=== PATIENT | female | born 1970 | race Caucasian/White ===

== ENCOUNTER 2020-11-22 04:28 | Inpatient (IN) | payer OTHER ==
[2020-11-22] MEDS ORDERED: SODIUM CHLORIDE 0.9% 500 ML 500 ML IV STA (04:35)
[2020-11-22] MEDS ORDERED: KETOROLAC 15 MG/ML 1 ML VIAL IVP STA (04:50)
[2020-11-22 05:20] LABS: ALT 47 U/L (4-34); AST 154 U/L (14-36); African American GFR (CKD) >90 (>60 ml/min/1.73 sqM); Albumin 3.1 g/dL (3.5-5.0); Alkaline Phosphatase 252 U/L (38-126); Amylase 60 U/L (30-110); Anion Gap 10 mmol/L; Blood Urea Nitrogen 6 mg/dL (7-17); Calcium 8.4 mg/dL (8.4-10.2); Carbon Dioxide 27 mmol/L (22-30); Chloride 100 mmol/L (98-107); Glucose 101 mg/dL (74-99); Lipase 82 U/L (23-300); Non-African American GFR(CKD) >90 (>60 ml/min/1.73 sqM); Potassium 3.2 mmol/L (3.5-5.1); Sodium 137 mmol/L (137-145); Total Bilirubin 6.6 mg/dL (0.2-1.3); Total Protein 8.8 g/dL (6.3-8.2)
[2020-11-22 05:39] LABS: Basophils % (A) 0 %; Eosinophils # (A) 0.1 k/uL (0-0.7); Eosinophils % (A) 1 %; HCT 31.2 % (34.0-46.0); HGB 10.4 gm/dL (11.4-16.0); Lymphocytes # (A) 0.9 k/uL (1.0-4.8); Lymphocytes % (A) 8 %; MCH 33.4 pg (25.0-35.0); MCHC 33.4 g/dL (31.0-37.0); MCV 99.8 fL (80.0-100.0); Macrocytosis Slight; Monocytes # (A) 0.6 k/uL (0-1.0); Monocytes % (A) 6 %; Neutrophils # (A) 9.9 k/uL (1.3-7.7); Neutrophils % (A) 85 %; Platelet Count 101 k/uL (150-450); RBC 3.12 m/uL (3.80-5.40); RDW 14.7 % (11.5-15.5); WBC 11.7 k/uL (3.8-10.6)
--- NOTE | 2020-11-22 05:53 | ED ---
Abdominal Pain HPI - General Source: EMS Mode of arrival: EMS - History of Present Illness MD Complaint: abdominal pain -: hour(s) Location: RUQ Radiation: none Migration to: no migration Severity: severe Quality: sharp Consistency: constant Improves With: nothing Worsens With: nothing Associated Symptoms: nausea, vomiting <Justus Warner - Last Filed: 11/22/20 06:00> <Clem Sewell - Last Filed: 11/22/20 08:36> - General Chief Complaint: Abdominal Pain Stated Complaint: Abd Pain Time Seen by Provider: 11/22/20 04:31 - History of Present Illness Initial Comments: This patient is a 50-year-old woman who presents to be evaluated for right upper quadrant abdominal pain, nausea vomiting. The patient states she is in town for camping. She lives in [place] and she had been treated in the city for similar pain, being hospitalized October 18. The patient was told that it was related to her gallbladder. Patient does have follow-up coming up with records management engineer and another physician in the next 2 days. (Justus Warner) - Related Data Home Medications Medication Instructions Recorded Confirmed Albuterol Sulfate [Proair Hfa] 1 - 2 puff INHALATION RT-QID PRN 11/22/20 11/22/20 Budesonide/Formoterol Fumarate 2 puff INHALATION RT-BID 11/22/20 11/22/20 [Symbicort 80-4.5 Mcg Inhaler] Omeprazole [PriLOSEC] 20 mg PO AC-BRKFST 11/22/20 11/22/20 Allergies Allergy/AdvReac Type Severity Reaction Status Date / Time No Known Allergies Allergy Verified 11/22/20 07:27 Review of Systems ROS Other: All systems not noted in ROS Statement are negative. Constitutional: Denies: fever, chills Respiratory: Denies: cough, dyspnea Cardiovascular: Denies: chest pain, palpitations, edema Gastrointestinal: Reports: abdominal pain, nausea, vomiting. Denies: diarrhea, constipation Genitourinary: Denies: dysuria, hematuria Musculoskeletal: Denies: back pain Skin: Denies: rash Neurological: Denies: headache, weakness, numbness <Justus Warner - Last Filed: 11/22/20 06:00> ROS Other: All systems not noted in ROS Statement are negative. <Clem Sewell - Last Filed: 11/22/20 08:36> ROS Statement: Those systems with pertinent positive or pertinent negative responses have been documented in the HPI. Past Medical History Additional Past Medical History / Comment(s): gallbladder and liver issues History of Any Multi-Drug Resistant Organisms: None Reported Additional Past Surgical History / Comment(s): tubal Past Psychological History: Anxiety Smoking Status: Current every day smoker Past Alcohol Use History: None Reported Past Drug Use History: None Reported <Justus Warner - Last Filed: 11/22/20 06:00> General Exam General appearance: alert, in no apparent distress Head exam: Present: atraumatic, normocephalic Eye exam: Present: PERRL, scleral icterus. Absent: conjunctival injection ENT exam: Present: normal oropharynx Neck exam: Present: normal inspection, full ROM. Absent: tenderness Respiratory exam: Present: normal lung sounds bilaterally. Absent: respiratory distress, wheezes, rales, rhonchi, stridor Cardiovascular Exam: Present: regular rate, normal rhythm, normal heart sounds. Absent: systolic murmur, diastolic murmur, rubs, gallop GI/Abdominal exam: Present: soft, distended, tenderness (Mild right upper quadrant tenderness), organomegaly, other (Exam is consistent with moderate ascites and hepatomegaly). Absent: guarding, rebound, rigid, pulsatile mass Extremities exam: Present: normal inspection, normal capillary refill. Absent: pedal edema, calf tenderness Back exam: Present: normal inspection. Absent: CVA tenderness (R), CVA tenderness (L) Neurological exam: Present: alert Skin exam: Present: warm, dry, intact, other (Jaundice). Absent: rash <Justus Warner - Last Filed: 11/22/20 06:00> Course Vital Signs 11/22/20 11/22/20 04:32 06:58 Temperature 98.8 F Pulse Rate 96 82 Respiratory 19 17 Rate Blood Pressure 146/69 111/52 O2 Sat by Pulse 99 97 Oximetry Medical Decision Making - Lab Data Result diagrams: 11/22/20 04:55 11/22/20 04:55 <Justus Warner - Last Filed: 11/22/20 06:00> - Lab Data Result diagrams: 11/22/20 04:55 11/22/20 04:55 <Clem Sewell - Last Filed: 11/22/20 08:36> - Medical Decision Making Care signed out to me by previous shift physician, Dr. Solis. Briefly, patient is a 50-year-old female presents to the emergency department for abdominal pain. Labs show hepatitis with elevated bilirubin. Patient was seen at outside emergency department recently told that she had gallbladder versus liver dysfunction. Plan at sign out was to follow up with pending ultrasound of the gallbladder. She does already have close outpatient follow-up with gallbladder and liver specialist. Repeat vital signs shows findings within acceptable limits. Patient is afebrile. Gallbladder ultrasound shows underlying hepatocellular disease. His hepatom egaly with surrounding ascites. Gallbladder findings may be a product of underlying liver disease. Radiology read says acute cholecystitis is not entirely excluded. Patient reevaluated at bedside at 8:20 AM. She does report having active symptoms of right upper quadrant abdominal pain, nausea and increased thirst. Repeat abdominal exam shows tenderness to the right upper quadrant. At this point there is suspicion of acute cholecystitis. Patient started on Zosyn. She'll be admitted to [facility] with general surgery and gastroenterology on consult. Case is discussed with Dr. Flowers who is aware of patient and will be on consult. (Clem Sewell) - Lab Data Lab Results 11/22/20 11/22/20 11/22/20 Range/Units 04:55 04:55 04:55 WBC 11.7 H (3.8-10.6) k/uL RBC 3.12 L (3.80-5.40) m/uL Hgb 10.4 L (11.4-16.0) gm/dL Hct 31.2 L (34.0-46.0) % MCV 99.8 (80.0-100.0) fL MCH 33.4 (25.0-35.0) pg MCHC 33.4 (31.0-37.0) g/dL RDW 14.7 (11.5-15.5) % Plt Count 101 L (150-450) k/uL MPV 10.0 Neutrophils % 85 % Lymphocytes % 8 % Monocytes % 6 % Eosinophils % 1 % Basophils % 0 % Neutrophils # 9.9 H (1.3-7.7) k/uL Lymphocytes # 0.9 L (1.0-4.8) k/uL Monocytes # 0.6 (0-1.0) k/uL Eosinophils # 0.1 (0-0.7) k/uL Basophils # 0.0 (0-0.2) k/uL Macrocytosis Slight PT (9.0-12.0) sec INR (<1.2) APTT (22.0-30.0) sec Sodium 137 (137-145) mmol/L Potassium 3.2 L (3.5-5.1) mmol/L Chloride 100 (98-107) mmol/L Carbon Dioxide 27 (22-30) mmol/L Anion Gap 10 mmol/L BUN 6 L (7-17) mg/dL Creatinine 0.53 (0.52-1.04) mg/dL Est GFR (CKD-EPI)AfAm >90 (>60 ml/min/1.73 sqM) Est GFR (CKD-EPI)NonAf >90 (>60 ml/min/1.73 sqM) Glucose 101 H (74-99) mg/dL Lactic Ac Sepsis Rflx Plasma Lactic Acid Alex 2.7 H* (0.7-2.0) mmol/L Calcium 8.4 (8.4-10.2) mg/dL Total Bilirubin 6.6 H (0.2-1.3) mg/dL AST 154 H (14-36) U/L ALT 47 H (4-34) U/L Alkaline Phosphatase 252 H (38-126) U/L Total Protein 8.8 H (6.3-8.2) g/dL Albumin 3.1 L (3.5-5.0) g/dL Amylase 60 (30-110) U/L Lipase 82 (23-300) U/L 11/22/20 11/22/20 Range/Units 05:46 06:44 WBC (3.8-10.6) k/uL RBC (3.80-5.40) m/uL Hgb (11.4-16.0) gm/dL Hct (34.0-46.0) % MCV (80.0-100.0) fL MCH (25.0-35.0) pg MCHC (31.0-37.0) g/dL RDW (11.5-15.5) % Plt Count (150-450) k/uL MPV Neutrophils % % Lymphocytes % % Monocytes % % Eosinophils % % Basophils % % Neutrophils # (1.3-7.7) k/uL Lymphocytes # (1.0-4.8) k/uL Monocytes # (0-1.0) k/uL Eosinophils # (0-0.7) k/uL Basophils # (0-0.2) k/uL Macrocytosis PT 20.8 H (9.0-12.0) sec INR 2.1 H (<1.2) APTT 39.7 H (22.0-30.0) sec Sodium (137-145) mmol/L Potassium (3.5-5.1) mmol/L Chloride (98-107) mmol/L Carbon Dioxide (22-30) mmol/L Anion Gap mmol/L BUN (7-17) mg/dL Creatinine (0.52-1.04) mg/dL Est GFR (CKD-EPI)AfAm (>60 ml/min/1.73 sqM) Est GFR (CKD-EPI)NonAf (>60 ml/min/1.73 sqM) Glucose (74-99) mg/dL Lactic Ac Sepsis Rflx Y Plasma Lactic Acid Alex (0.7-2.0) mmol/L Calcium (8.4-10.2) mg/dL Total Bilirubin (0.2-1.3) mg/dL AST (14-36) U/L ALT (4-34) U/L Alkaline Phosphatase (38-126) U/L Total Protein (6.3-8.2) g/dL Albumin (3.5-5.0) g/dL Amylase (30-110) U/L Lipase (23-300) U/L Disposition <Justus Warner - Last Filed: 11/22/20 06:00> <Clem Sewell - Last Filed: 11/22/20 08:36> Clinical Impression: Abdominal pain, Liver failure Disposition: ADMITTED IP TO THIS HOSP Condition: Fair Referrals: Nonstaff,Physician [Primary Care Provider] - 1-2 days
[2020-11-22 07:15] LABS: INR 2.1 (<1.2); Partial Thromboplastin Time 39.7 sec (22.0-30.0); Prothrombin Time 20.8 sec (9.0-12.0)
--- NOTE | 2020-11-22 07:59 | US ---
EXAMINATION TYPE: US abdomen limited DATE OF EXAM: 11/22/2020 COMPARISON: NONE CLINICAL HISTORY: attention RUQ. RUQ pain nausea and vomiting EXAM MEASUREMENTS: Liver Length: 21.5 cm Gallbladder Wall: .3 cm CBD: 1.0 cm Right Kidney: 11.3 x 4.2 x 5.5 cm Pancreas: Homogeneous, duct visualized 2 mm Liver: Hepatomegaly ascites visualized Gallbladder: Hydropic 14.4 cm pericholecystic fluid seen with echogenic foci within gallbladder Evidence for sonographic Blanchard's sign: No CBD: Dilated Right Kidney: No hydronephrosis or masses seen Visualized pancreas within normal limits. Visualized liver heterogeneous and enlarged with small amou nt of surrounding ascites. No significant intrahepatic biliary dilatation. Gallbladder has distended margins with possible small stones and/or sludge. Mild extra hepatic biliary dilatation. IMPRESSION: Underlying hepatocellular disease. Hepatomegaly with surrounding ascites. Gallbladder fin dings may be on product of underlying liver disease. Acute cholecystitis is not entirely excluded. Co nsider HIDA scan follow-up.
[2020-11-22] MEDS ORDERED: PIPERACILLIN-TAZOBACTAM 3.375 GM in SODIUM CHLORIDE 0.9% 100 ML IVPB STA (08:18)
[2020-11-22] MEDS ORDERED: NALOXONE 0.4 MG/ML 1 ML VIAL IV PRN (08:28)
[2020-11-22] MEDS: ONDANSETRON 4 MG/2 ML VIAL IVP PRN ×2 (08:36→18:03)
[2020-11-22] MEDS: SODIUM CHLORIDE 0.9% 1,000 ML IV SCH ×2 (08:37→21:19)
[2020-11-22] MEDS: PANTOPRAZOLE 40 MG/10 ML VIAL IV SCH (08:40)
--- NOTE | 2020-11-22 09:27 | CT ---
EXAMINATION TYPE: CT abdomen pelvis w con DATE OF EXAM: 11/22/2020 COMPARISON: Ultrasound same day HISTORY: 50-year-old female with bloating and jaundice, abdominal pain. TECHNIQUE: Contiguous axial scanning of the abdomen and pelvis following administration of 100 ml Iso long 300 IV contrast. Delayed images through the kidneys and coronal/sagittal reconstructions perform ed. CT DLP: 662.1 mGycm Automated exposure control for dose reduction was used. FINDINGS: Heart normal size without pericardial effusion. Some strandy atelectasis in the lower lungs. Dependen t atelectasis as well. There is a small hiatal hernia with suggestion of lower esophageal varices. There is cirrhotic morphology to the liver with nodular contour. Extensive heterogeneous enhancement on the initial phase. On delayed kidney images, a couple small hypodensities within the right liver l obe measuring 7 mm and 6 mm on series 301 axial image 17 and 24. Follow-up is recommended to exclude early HCC. Portal venous system is patent. Gallbladder is markedly hydropic measuring 6 cm wide. Bile duct is dilated at 1.1 cm. There is possib le faint density at the distal bile duct, coronal image 51. Moderate abdominal and pelvic ascites. Adrenal glands, kidneys, spleen, and pancreas show no gross abnormality. Dmitry hepatic lymph node measuring 8 mm probably reactive. Moderate to severe wall thickening of the right side of the colon. No dilated small bowel or free air. Bladder partially distended. Uterus anteverted. Both ovaries are visualized. Ascites fluid continues into the pelvis. No pelvic lymphadenopathy seen. Bones: No osseous destructive process. IMPRESSION: 1. CIRRHOTIC MORPHOLOGY OF THE LIVER. EXTENSIVE HETEROGENEOUS ENHANCEMENT OF THE LIVER LIKELY DUE TO THE CIRRHOSIS. ON THE DELAYED SCAN, THERE ARE A COUPLE HYPODENSE LESIONS IN THE RIGHT LIVER LOBE ANGELA URING UP TO [address] MM[address] FOLLOW-UP CT OR MRI IN 3-6 MONTHS TO EXCLUDE SMALL EARLY FOCI OF HCC. 2. THE PRESENCE OF MODERATE ASCITES AND LOWER ESOPHAGEAL VARICES SUGGESTS PORTAL VENOUS HYPERTENSION. 3. BILE DUCT DILATED AT 1.1 CM. POSSIBLE FAINT DENSITY AT THE DISTAL BILE DUCT. CORRELATE WITH ALKALI NE PHOSPHATASE AND BILIRUBIN LEVELS TO EXCLUDE CHOLEDOCHOLITHIASIS. 4. HYDROPIC GALLBLADDER CHANGE COULD BE SECONDARY TO FASTING STATE OR BILIARY OBSTRUCTION. THE DEGREE OF DISTENTION IS OUT OF PROPORTION TO THE GALLBLADDER WALL THICKENING ARGUING AGAINST ACUTE CHOLECYS TITIS AT THIS TIME. FURTHER CLINICAL CORRELATION RECOMMENDED. 5. MODERATE TO SEVERE WALL THICKENING OF THE RIGHT SIDE OF THE COLON COULD REPRESENT A SIGNIFICANT NO NSPECIFIC COLITIS IF THERE IS PAIN. OTHERWISE, CONSIDER BOWEL WALL EDEMA FROM HYPOALBUMINEMIA.
[2020-11-22] MEDS ORDERED: ACETAMINOPHEN TAB 325 MG TAB PO PRN (09:28)
[2020-11-22] MEDS: MORPHINE SULFATE 4 MG/ML SYRINGE IV PRN ×2 (09:37→18:03)
--- NOTE | 2020-11-22 10:52 | P.HPIM ---
History of Present Illness H&P Date: 11/22/20 Chief Complaint: Abdominal pain this is a 50-year-old female with past medical history noted below significant for alcoholic liver cirrhosis that presented to the emergency room with abdominal pain. Patient said that her symptoms started couple of days ago and is being getting progressively worse. Patient noted that her abdomen is more distended and was having a lot of nausea and vomiting. Patient denies any blood in her vomitus. She said it's mostly spitting and retching. Patient is also complaining of loose stool and having to 3 bowel movements per day. Patient said that she used to drink alcohol heavily but quit drinking on October 18. She is from the [facility] and usually follow[place]up with [facility] [place]. Patient was scheduled to see a quality assurance specialist tomorrow. She was told that she has liver problems but is not sure what. She denies having any history of GI bleed. Patient was evaluated by me in the ER. She clearly has a large ascites in her abdomen was distended with moderate to severe tenderness all over. Review of Systems Review of system: 14 points review of systems were obtained and were negative except to what were mentioned in the HPI. Past Medical History Additional Past Medical History / Comment(s): gallbladder and liver issues History of Any Multi-Drug Resistant Organisms: None Reported Additional Past Surgical History / Comment(s): tubal Past Psychological History: Anxiety Smoking Status: Current every day smoker Past Alcohol Use History: None Reported Past Drug Use History: None Reported Medications and Allergies Home Medications Medication Instructions Recorded Confirmed Type Albuterol Sulfate [Proair Hfa] 1 - 2 puff INHALATION RT-QID PRN 11/22/20 11/22/20 History Budesonide/Formoterol Fumarate 2 puff INHALATION RT-BID 11/22/20 11/22/20 History [Symbicort 80-4.5 Mcg Inhaler] Omeprazole [PriLOSEC] 20 mg PO AC-BRKFST 11/22/20 11/22/20 History Allergies Allergy/AdvReac Type Severity Reaction Status Date / Time No Known Allergies Allergy Verified 11/22/20 07:27 Physical Exam Vitals: Vital Signs Temp Pulse Resp BP Pulse Ox 11/22/20 10:13 100.5 F H 11/22/20 09:22 101.5 F H 100 18 144/68 98 11/22/20 06:58 82 17 111/52 97 11/22/20 04:32 98.8 F 96 19 146/69 99 Intake and Output 11/21/20 11/22/20 11/22/20 22:59 06:59 14:59 Other: Weight 52.163 kg General: The patient is awake and alert, in no distress Eye: there is normal conjunctiva bilaterally. Neck: The neck is supple, there is no JVD. Cardiovascular: Normal S1-S2, no S3-S4, no murmurs. Respiratory: Lungs clear to auscultation bilaterally Gastrointestinal: Abdomen is significantly distended with evidence of large ascites. There is moderate to severe tenderness all over the abdomen. Musculoskeletal: There is +1 pedal edema. Neurological:. Speech is normal. Skin: Skin is warm and dry Results CBC & Chem 7: 11/22/20 04:55 11/22/20 04:55 Labs: Abnormal Lab Results - Last 24 Hours (Table) 11/22/20 11/22/20 11/22/20 Range/Units 04:55 04:55 04:55 WBC 11.7 H (3.8-10.6) k/uL RBC 3.12 L (3.80-5.40) m/uL Hgb 10.4 L (11.4-16.0) gm/dL Hct 31.2 L (34.0-46.0) % Plt Count 101 L (150-450) k/uL Neutrophils # 9.9 H (1.3-7.7) k/uL Lymphocytes # 0.9 L (1.0-4.8) k/uL PT (9.0-12.0) sec INR (<1.2) APTT (22.0-30.0) sec Potassium 3.2 L (3.5-5.1) mmol/L BUN 6 L (7-17) mg/dL Glucose 101 H (74-99) mg/dL Plasma Lactic Acid Alex 2.7 H* (0.7-2.0) mmol/L Total Bilirubin 6.6 H (0.2-1.3) mg/dL AST 154 H (14-36) U/L ALT 47 H (4-34) U/L Alkaline Phosphatase 252 H (38-126) U/L Ammonia (<30) umol/L Total Protein 8.8 H (6.3-8.2) g/dL Albumin 3.1 L (3.5-5.0) g/dL 11/22/20 11/22/20 11/22/20 Range/Units 06:44 06:44 09:33 WBC (3.8-10.6) k/uL RBC (3.80-5.40) m/uL Hgb (11.4-16.0) gm/dL Hct (34.0-46.0) % Plt Count (150-450) k/uL Neutrophils # (1.3-7.7) k/uL Lymphocytes # (1.0-4.8) k/uL PT 20.8 H (9.0-12.0) sec INR 2.1 H (<1.2) APTT 39.7 H (22.0-30.0) sec Potassium (3.5-5.1) mmol/L BUN (7-17) mg/dL Glucose (74-99) mg/dL Plasma Lactic Acid Alex 3.4 H* (0.7-2.0) mmol/L Total Bilirubin (0.2-1.3) mg/dL AST (14-36) U/L ALT (4-34) U/L Alkaline Phosphatase (38-126) U/L Ammonia 44 H (<30) umol/L Total Protein (6.3-8.2) g/dL Albumin (3.5-5.0) g/dL Assessment and Plan Assessment: This is a 50-year-old female with very complex past medical history noted below who presented to the emergency room with worsening abdominal pain and distention. Patient was evaluated in the ER and was readmitted to the hospital for further management of her medical problems noted below. 1. Large ascites with suspected spontaneous bacterial peritonitis, patient was given a dose of IV Zosyn in the ER. I would continue with ceftriaxone 2 g daily IV. Consult IR for paracentesis. 2. Severe sepsis without septic shock, received a liter IV fluid bolus in the ER. Continue her normal saline at 80 ml/hr. blood culture sent and pending. 3. Alcoholic liver cirrhosis with evidence of lower esophageal varices noted on computed tomography scan. Patient denies any history of variceal bleeds. GI consulted for further evaluation. 4. Coagulopathy, INR 2.1 without evidence of bleeding. I ordered 5 mg oral vitamin K. Repeat INR in the morning. 5. Thrombocytopenia, secondary to underlying liver disease 6. Hypokalemia, replacement ordered Today, I reviewed her medication list and lab work results. I would start patient on diuretics with IV Lasix 40 mg twice daily and spironolactone 50 mg daily. Plan to transition Lasix to oral tomorrow. There is evidence of mo derate to severe wall thickening of the colon noted on computed tomography scan suggestive for bowel edema. We will continue supportive care otherwise. Awaiting gastroenterology evaluation.
--- NOTE | 2020-11-22 10:53 | P.PN ---
Progress Note - Text Progress Note Date: 11/22/20 Advanced Care Planning Active Diagnosis: Alcoholic liver cirrhosis with spontaneous bacterial peritonitis and severe sepsis Persons present: Patient and other family members Summary: Discussed the patient's goals of care in detail including the meaning of cardiac resuscitation, chest compression/electric shock, and mechanical ventilation. Patient would like to have any resuscitation efforts possible to keep her alive Patient is full code Time spent: Total time spent face to face in education and discussion directly related to advanced care plannin minutes
[2020-11-22] MEDS ORDERED: POTASSIUM CHLORIDE 20 MEQ in WATER FOR INJECTION 1 100ML.BAG IVPB ONE (11:00)
[2020-11-22] MEDS ORDERED: SPIRONOLACTONE 25 MG TAB PO SCH (11:00)
[2020-11-22] MEDS ORDERED: PHYTONADIONE ORAL 5 MG/5 ML ORAL.SYRG PO ONE (11:15)
[2020-11-22 11:24] LABS: Appearance,Urine Clear (Clear); Bilirubin,Urine 1+ (Negative); Blood,Urine Negative (Negative); Color,Urine Dark Yellow; Glucose,Urine (UA) Negative (Negative); Ketones,Urine Negative (Negative); Leukocyte Esterase,Urine Negative (Negative); Nitrite,Urine Negative (Negative); Protein,Urine Trace (Negative)
[2020-11-22] MEDS: FUROSEMIDE 10 MG/ML 4 ML VIAL IV SCH ×2 (12:01→21:19)
--- NOTE | 2020-11-22 15:59 | P.CONS ---
History of Present Illness - Reason for Consult Consult date: 11/22/20 Abdominal pain, liver disease Requesting physician: Clem Sewell - Chief Complaint Abdominal pain - History of Present Illness This is a pleasant 50-year-old white female who presented to the emergency department with complaints of severe epigastric and right upper quadrant pain that started approximately 3 or 4:00 in the morning. The patient was camping in this area, he resides in [facility]. She states she was recently diagnosed with liver disease and gallbladder problems approximately one month ago. She is scheduled to see a central processing technician tomorrow Dr. Bryant. She noted she was starting to get distended in the abdomen 3-4 days ago, pain was getting worse, associated nausea, no vomiting. She states she has a significant history of alcohol abuse has been a heavy drinker daily for the past 4-5 years. She states she has not had any alcohol for approximately one month. Her admission labs include WBC 11.7, hemoglobin 10.4, hematocrit 31, platelets 401,000, INR 2.1, ammonia 44, total bilirubin 6.6, alkaline phosphatase 252, AST 154, ALT 47, amyl ase 60, lipase 82. Labs are consistent with alcoholic hepatitis. She has an ultrasound paracentesis ordered. However patient states she has not had ascites in the past, no previous paracentesis. She denies being on any diuretics from her previous admission. She had a ultrasound of the abdomen which showed underlying hepatocellular disease. Hepatomegaly with surrounding ascites. Gallbladder findings may be a product of underlying liver disease. Acute cholecystitis is not entirely excluded. Consider HIDA scan follow-up. CT of abdomen shows cirrhotic morphology of the liver with extensive heterogeneous enhancement of the liver likely due to cirrhosis. There are couple hypodense lesions in the right liver lobe measuring up to 7 mm, follow-up CT or MRI in 3-6 months to exclude small early foci of HCC. Presence of moderate ascites and lower esophageal varices suggest portal venous hypertension. Bile duct dilated at 1.1 cm possible faint density at the distal bile duct. Correlate with alkaline phosphatase and bilirubin levels to exclude choledochal lithiasis. Hydropic gallbladder change could be secondary to fasting state or biliary obstruction. Degree of distention is out of proportion to the gallbladder wall thickening arguing against acute cholecystitis at this time. Further clinical correlation recommended. Moderate to severe wall thickening of the right side of the colon could represent a significant nonspecific colitis if there is pain. Otherwise consider bowel wall edema from hypoalbuminemia. Review of Systems REVIEW OF SYSTEMS: CARDIOPULMONARY: No chest pain or shortness of breath. Gastrointestinal: Upper quadrant pain, epigastric pain. Abdominal distention. No nausea or vomiting. No hematemesis, coffee-ground emesis. No rectal bleeding, or melena. GENITOURINARY: No dysuria or hematuria. MUSCULOSKELETAL: Reports normal range of motion., Joint pain. SKIN: No rashes. Positive jaundice. ENDOCRINE: No chills, fevers. No excessive weight gain or loss. No polydipsia or polyuria. PSYCHIATRIC: Unremarkable. NEUROLOGY: No change in mental status. Denies dizziness, headache. ENT: Vision unremarkable. CONSTITUTIONAL: No recent weight loss. No fever, chills, night sweats. Past Medical History Past Medical History: GERD/Reflux Additional Past Medical History / Comment(s): Pt admitted to [facility] in [place] on 10/18/20 with gallbladder disease and told she may have liver cirrhosis. Pt states she was a heavy drinker but has not drank since 10/18/20. History of Any Multi-Drug Resistant Organisms: None Reported Past Surgical History: Tubal Ligation Additional Past Surgical History / Comment(s): tubal Past Anesthesia/Blood Transfusion Reactions: No Reported Reaction Smoking Status: Current every day smoker - Past Family History Father History Unknown: Yes Mother Family Medical History: Cancer Additional Family Medical History / Comment(s): Mother has survived 3 different types of cancer. Medications and Allergies Home Medications Medication Instructions Recorded Confirmed Type Albuterol Sulfate [Proair Hfa] 1 - 2 puff INHALATION RT-QID PRN 11/22/20 11/22/20 History Budesonide/Formoterol Fumarate 2 puff INHALATION RT-BID 11/22/20 11/22/20 History [Symbicort 80-4.5 Mcg Inhaler] Omeprazole [PriLOSEC] 20 mg PO AC-BRKFST 11/22/20 11/22/20 History Allergies Allergy/AdvReac Type Severity Reaction Status Date / Time No Known Allergies Allergy Verified 11/22/20 07:27 Physical Exam Vitals: Vital Signs Temp Pulse Resp BP Pulse Ox 11/22/20 13:48 100 16 101/43 98 11/22/20 12:10 100 18 101/48 100 11/22/20 10:13 100.5 F H 11/22/20 09:22 101.5 F H 100 18 144/68 98 11/22/20 06:58 82 17 111/52 97 11/22/20 04:32 98.8 F 96 19 146/69 99 Intake and Output 11/22/20 11/22/20 11/22/20 06:59 14:59 22:59 Other: Weight 52.163 kg 52.163 kg General appearance: The patient is alert, oriented, appears in no acute distress. HET: Head is normocephalic and atraumatic. Conjunctiva pink. Sclera anicteric. Oropharynx is clear without lesions. Neck: Supple without lymphadenopathy. Trachea midline. Heart: S1 S2. Regular rate and rhythm. Lungs: No crackles or wheezes are heard. Abdomen: Firm, diffuse tenderness, distended. Extremities: Bilateral lower extremity edema. In: No rashes. Jaundice. Neurological: No focal deficits. Alert and oriented 3. Results CBC & Chem 7: 11/22/20 04:55 11/22/20 04:55 Labs: Abnormal Lab Results - Last 24 Hours (Table) 11/22/20 11/22/20 11/22/20 Range/Units 04:55 04:55 04:55 WBC 11.7 H (3.8-10.6) k/uL RBC 3.12 L (3.80-5.40) m/uL Hgb 10.4 L (11.4-16.0) gm/dL Hct 31.2 L (34.0-46.0) % Plt Count 101 L (150-450) k/uL Neutrophils # 9.9 H (1.3-7.7) k/uL Lymphocytes # 0.9 L (1.0-4.8) k/uL PT (9.0-12.0) sec INR (<1.2) APTT (22.0-30.0) sec Potassium 3.2 L (3.5-5.1) mmol/L BUN 6 L (7-17) mg/dL Glucose 101 H (74-99) mg/dL Plasma Lactic Acid Alex 2.7 H* (0.7-2.0) mmol/L Total Bilirubin 6.6 H (0.2-1.3) mg/dL AST 154 H (14-36) U/L ALT 47 H (4-34) U/L Alkaline Phosphatase 252 H (38-126) U/L Ammonia (<30) umol/L Total Protein 8.8 H (6.3-8.2) g/dL Albumin 3.1 L (3.5-5.0) g/dL Ur Specific Martin (1.001-1.035) Urine Protein (Negative) Urine Bilirubin (Negative) 11/22/20 11/22/20 11/22/20 Range/Units 06:44 06:44 09:33 WBC (3.8-10.6) k/uL RBC (3.80-5.40) m/uL Hgb (11.4-16.0) gm/dL Hct (34.0-46.0) % Plt Count (150-450) k/uL Neutrophils # (1.3-7.7) k/uL Lymphocytes # (1.0-4.8) k/uL PT 20.8 H (9.0-12.0) sec INR 2.1 H (<1.2) APTT 39.7 H (22.0-30.0) sec Potassium (3.5-5.1) mmol/L BUN (7-17) mg/dL Glucose (74-99) mg/dL Plasma Lactic Acid Alex 3.4 H* (0.7-2.0) mmol/L Total Bilirubin (0.2-1.3) mg/dL AST (14-36) U/L ALT (4-34) U/L Alkaline Phosphatase (38-126) U/L Ammonia 44 H (<30) umol/L Total Protein (6.3-8.2) g/dL Albumin (3.5-5.0) g/dL Ur Specific Martin (1.001-1.035) Urine Protein (Negative) Urine Bilirubin (Negative) 11/22/20 11/22/20 Range/Units 10:55 12:42 WBC (3.8-10.6) k/uL RBC (3.80-5.40) m/uL Hgb (11.4-16.0) gm/dL Hct (34.0-46.0) % Plt Count (150-450) k/uL Neutrophils # (1.3-7.7) k/uL Lymphocytes # (1.0-4.8) k/uL PT (9.0-12.0) sec INR (<1.2) APTT (22.0-30.0) sec Potassium (3.5-5.1) mmol/L BUN (7-17) mg/dL Glucose (74-99) mg/dL Plasma Lactic Acid Alex 2.6 H* (0.7-2.0) mmol/L Total Bilirubin (0.2-1.3) mg/dL AST (14-36) U/L ALT (4-34) U/L Alkaline Phosphatase (38-126) U/L Ammonia (<30) umol/L Total Protein (6.3-8.2) g/dL Albumin (3.5-5.0) g/dL Ur Specific Martin 1.050 H (1.001-1.035) Urine Protein Trace H (Negative) Urine Bilirubin 1+ H (Negative) Comments: ultrasound of the abdomen which showed underlying hepatocellular disease. Hepatomegaly with surrounding ascites. Gallbladder findings may be a product of underlying liver disease. Acute cholecystitis is not entirely excluded. Consider HIDA scan follow-up. CT of abdomen shows cirrhotic morphology of the liver with extensive heterogeneous enhancement of the liver likely due to cirrhosis. There are couple hypodense lesions in the right liver lobe measuring up to 7 mm, follow-up CT or MRI in 3-6 months to exclude small early foci of HCC. Presence of moderate ascites and lower esophageal varices suggest portal venous hypertension. Bile duct dilated at 1.1 cm possible faint density at the distal bile duct. Correlate with alkaline phosphatase and bilirubin levels to exclude choledochal lithiasis. Hydropic gallbladder change could be secondary to fasting state or biliary obstruction. Degree of distention is out of proportion to the gallbladder wall thickening arguing against acute cholecystitis at this time. Further clinical correlation recommended. Moderate to severe wall th ickening of the right side of the colon could represent a significant nonspecific colitis if there is pain. Otherwise consider bowel wall edema from hypoalbuminemia. Assessment and Plan (1) Cirrhosis of liver with ascites Narrative/Plan: Since a 50-year-old female who presented to the emergency department with severe onset of epigastric and right upper quadrant pain that started around 3 or 4:00 in the morning. She states she has been noticing abdominal distention over the last 3-4 days. She denies any previous history of ascites or previous paracentesis, however was admitted to the hospital approximately one month ago and diagnosed with alcoholic liver disease. She states she has a follow-up appointment with gastroenterology in [facility] Dr. Bryant. She admits to heavy alcohol consumption over the last 5-6 years, which she states she has been drinking daily. She states she stopped drinking approximately one month ago after her hospitalization. Liver enzymes are consistent with alcoholic hepatitis. She had a ultrasound of the abdomen which showed underlying hepatocellular disease. Hepatomegaly with surrounding ascites. Gallbladder findings may be a product of underlying liver disease. Acute cholecystitis is not entirely excluded. Consider HIDA scan follow-up. CT of abdomen shows cirrhotic morphology of the liver with extensive heterogeneous enhancement of the liver likely due to cirrhosis. There are couple hypodense lesions in the right liver lobe measuring up to 7 mm, follow-up CT or MRI in 3-6 months to exclude small early foci of HCC. Presence of moderate ascites and lower esophageal varices suggest portal venous hypertension. Bile duct dilated at 1.1 cm possible faint density at the distal bile duct. Correlate with alkaline phosphatase and bilirubin levels to exclude choledochal lithiasis. Hydropic gallbladder change could be secondary to fasting state or biliary obstruction. Degree of distention is out of proportion to the gallbladder wall thickening arguing against acute cholecystitis at this time. Further clinical correlation recommended. Moderate to severe wall thickening of the right side of the colon could represent a significant nonspecific colitis if there is pain. Otherwise consider bowel wall edema from hypoalbuminemia. Agree paracentesis with cell count and fluid culture and antibiotics for consideration of possible spontaneous bacterial peritonitis. Current Visit: Yes Status: Acute Code(s): K74.60 - UNSPECIFIED CIRRHOSIS OF LIVER; R18.8 - OTHER ASCITES SNOMED Code(s): 67207254 (2) Abdominal pain Current Visit: Yes Status: Acute Code(s): R10.9 - UNSPECIFIED ABDOMINAL PAIN SNOMED Code(s): 24661331 Plan: 1. Agree with paracentesis with fluid studies including cell count, fluid culture, protein and albumin 2. Continue Lasix 40 mg twice a day 3. Continue Aldactone 50 mg daily 4. Repeat CBC, INR, CMP daily 5. Repeat ammonia in the morning 6. Alcohol cessation 7. Continue broad-spectrum antibiotics Thank you for this consultation, we will continue to follow Dr. Gabriel Hendricks I agree with the dictator's note, documented as a scribe by Johnna Patel.
[2020-11-22] MEDS: LACTULOSE 20 GM/30 ML CUP PO SCH ×2 (16:22→21:18)
--- NOTE | 2020-11-22 16:39 | US ---
EXAMINATION TYPE: US paracentesis abd w/image DATE OF EXAM: 11/22/2020 COMPARISON: CT 11/22/2020 HISTORY: Ascites. PROCEDURE: Maximal barrier technique was utilized. The skin overlying a suitable pocket of fluid was localized with ultrasound and the overlying skin was prepped and draped in the right lower quadrant. Ultrasoun d was utilized with sterile technique. Lidocaine was used for local anesthesia. 22-gauge needle was a dvanced under direct ultrasound guidance into a suitable pocket of fluid and approximately 5 cc yello w fluid removed. Catheter was withdrawn and hemostasis achieved. There is no immediate complication ; the patient is discharged in stable condition. IMPRESSION: STATUS POST ULTRASOUND GUIDED PARACENTESIS FOR DIAGNOSTIC PURPOSES OF ASCITES. THIS PRO CEDURE WAS PERFORMED BY THE UNDERSIGNED.
[2020-11-22 18:04] LABS: Appearance,BF Cloudy; Nucleated Cells, Body Fluid 7700 /uL; RBC, Body Fluid 150 /uL
--- NOTE | 2020-11-22 18:21 | P.GSCN ---
History of Present Illness Consult date: 11/22/20 History of present illness: CHIEF COMPLAINT: Abdominal pain HISTORY OF PRESENT ILLNESS: The patient is a 50 year old female with history of heavy alcohol use. She presented with acute onset abdominal pain at the right upper quadrant for over 2 days. She complained of bloating and severe belly pain. She has nausea. She reports abdominal pain has improved. No reports of blood in stools. General surgery is consulted for right upper quadrant abdominal pain. PAST MEDICAL HISTORY: See list and reviewed PAST SURGICAL HISTORY: See list and reviewed MEDICATIONS: See list and reviewed ALLERGIES: See list and reviewed SOCIAL HISTORY: See list and reviewed FAMILY HISTORY: See list and reviewed REVIEW OF ORGAN SYSTEMS: CONSTITUTIONAL: No fevers or chills. EYES: Denies any trouble with vision. No glasses. HEENT: No difficulties with hearing. No nosebleeds. No difficulty swallowing. RESPIRATORY: Has tobacco abuse disorder. Has chronic obstructive pulmonary disease. CARDIOVASCULAR: Denies any chest pain, palpitations, or recent heart attacks. GASTROINTESTINAL: Has gastroesophageal reflux disease GENITOURINARY: Denies any blood in urine or increased urinary frequency. NEUROLOGICAL: Denies any numbness or tingling along the distal extremities. No seizure disorders or headaches. MUSCULOSKELETAL: Has back pain, stiffness or joint arthritis. SKIN: No current skin cancer. No rash. PSYCHIATRIC: Has anxiety. ENDOCRINE: Denies current thyroid disorders. Denies any blood sugar glucose intolerance. HEME/LYMPHATIC: Denies any lumps and bumps around the neck. No recent deep venous thrombosis. ALLERGY/IMMUNOLOGY: No immunoglobulin therapy. No immune deficiencies. BREAST: Denies current breast lumps, pain or nipple discharge. PHYSICAL EXAM: VITALS: Reviewed CONSTITUTIONAL: Well developed and in no acute distress. EYES: Conjuctivae with sclera icterus. Extraocular movements grossly intact. HEAD, EARS, NOSE, THROAT: Moist buccal mucosa. Head is atraumatic, normocephalic. Hears conversational speech. No nasal drainage. NECK: Supple. No JV distention. No thyroidomegaly. RESPIRATORY: Non-labored respirations and equal bilateral excursions. No gross wheezes. CARDIOVASCULAR: Palpable 2+ radial pulses. ABDOMEN: Has abdominal distention with ascites. Has diffuse tenderness. LYMPH: No neck lymphadenopathy. MUSCULOSKELETAL: Nail and fingers with good capillary refill. SKIN: Warm and well perfused with good skin turgor. NEUROLOGIC: Cranial nerves II through XII grossly intact. No focal or lateralizing signs. PSYCH: Alert and oriented to person, place and time. Displays appropriate insight. CLINCAL LABS: Reviewed. WBC elevated over 11,000. LFTs elevated with total bilirubin over 6.6. Lactic acid elevated. INR 2.0 IMAGING: US reviewed consistent with cirrhosis and new abdominal ascites. This is my independent interpretation. CT of the abdomen and pelvis independently reviewed by me demonstrated spl enomegaly, ascites, hydrops of the gallbladder. This is my independent interpretation. RADIOLOGY: Report reviewed CT of the abdomen pelvis demonstrates esophageal varices with hiatal hernia. Dilated common bile duct over 1 cm. Hydrops of the gallbladder as well. Thickening of the colon identified. Ultrasound report confirms hydrops of the gallbladder with cirrhosis and dilated common bile duct. Sludge and gallstones identified. ASSESSMENT: 1. Alcohol-induced hepatitis with cirrhosis 2. Abdominal ascites 3. Jaundice with gallstones 4. Liver failure PLAN: 1. Patient seen and evaluated with history of heavy alcohol use. 2. Patient is jaundiced with labs consistent with acute liver failure. 3. RUQ pain likely for acute liver failure and less likely acute cholecystitis. 4. Cholecystectomy contra-indicated in acute liver failure. 5. No acute surgical intervention advised. Thank you for this kind consultation. Past Medical History Past Medical History: GERD/Reflux Additional Past Medical History / Comment(s): Pt admitted to [facility] in [place] on 10/18/20 with gallbladder disease and told she may have liver cirrhosis. Pt states she was a heavy drinker but has not drank since 10/18/20. History of Any Multi-Drug Resistant Organisms: None Reported Past Surgical History: Tubal Ligation Additional Past Surgical History / Comment(s): tubal Past Anesthesia/Blood Transfusion Reactions: No Reported Reaction Smoking Status: Current every day smoker - Past Family History Father History Unknown: Yes Mother Family Medical History: Cancer Additional Family Medical History / Comment(s): Mother has survived 3 different types of cancer. Medications and Allergies Home Medications Medication Instructions Recorded Confirmed Type Albuterol Sulfate [Proair Hfa] 1 - 2 puff INHALATION RT-QID PRN 11/22/20 11/22/20 History Budesonide/Formoterol Fumarate 2 puff INHALATION RT-BID 11/22/20 11/22/20 History [Symbicort 80-4.5 Mcg Inhaler] Omeprazole [PriLOSEC] 20 mg PO AC-BRKFST 11/22/20 11/22/20 History Cephalexin [Keflex] 500 mg PO Q6HR 10 Days #40 cap 11/26/20 Rx Furosemide [Lasix] 40 mg PO BID #60 tablet 11/26/20 Rx Lactulose [Cephulac] 10 gm PO BID #60 ml 11/26/20 Rx Magnesium Oxide [Mag-Ox] 400 mg PO DAILY #30 tablet 11/26/20 Rx Potassium Chloride ER [K-Dur 10] 10 meq PO DAILY #30 tab 11/26/20 Rx Spironolactone 50 mg PO DAILY #30 tablet 11/26/20 Rx Allergies Allergy/AdvReac Type Severity Reaction Status Date / Time No Known Allergies Allergy Verified 11/22/20 07:27 Surgical - Exam Vital Signs Temp Pulse Resp BP Pulse Ox 98.8 F 96 19 146/69 99 11/22/20 04:32 11/22/20 04:32 11/22/20 04:32 11/22/20 04:32 11/22/20 04:32 Results - Labs 11/25/20 03:42 11/26/20 05:51 Abnormal Lab Results - Last 24 Hours (Table) 11/22/20 11/22/20 11/22/20 Range/Units 04:55 04:55 04:55 WBC 11.7 H (3.8-10.6) k/uL RBC 3.12 L (3.80-5.40) m/uL Hgb 10.4 L (11.4-16.0) gm/dL Hct 31.2 L (34.0-46.0) % Plt Count 101 L (150-450) k/uL Neutrophils # 9.9 H (1.3-7.7) k/uL Lymphocytes # 0.9 L (1.0-4.8) k/uL PT (9.0-12.0) sec INR (<1.2) APTT (22.0-30.0) sec Potassium 3.2 L (3.5-5.1) mmol/L BUN 6 L (7-17) mg/dL Glucose 101 H (74-99) mg/dL Plasma Lactic Acid Alex 2.7 H* (0.7-2.0) mmol/L Total Bilirubin 6.6 H (0.2-1.3) mg/dL AST 154 H (14-36) U/L ALT 47 H (4-34) U/L Alkaline Phosphatase 252 H (38-126) U/L Ammonia (<30) umol/L Total Protein 8.8 H (6.3-8.2) g/dL Albumin 3.1 L (3.5-5.0) g/dL Ur Specific Hollister (1.001-1.035) Urine Protein (Negative) Urine Bilirubin (Negative) 11/22/20 11/22/20 11/22/20 Range/Units 06:44 06:44 09:33 WBC (3.8-10.6) k/uL RBC (3.80-5.40) m/uL Hgb (11.4-16.0) gm/dL Hct (34.0-46.0) % Plt Count (150-450) k/uL Neutrophils # (1.3-7.7) k/uL Lymphocytes # (1.0-4.8) k/uL PT 20.8 H (9.0-12.0) sec INR 2.1 H (<1.2) APTT 39.7 H (22.0-30.0) sec Potassium (3.5-5.1) mmol/L BUN (7-17) mg/dL Glucose (74-99) mg/dL Plasma Lactic Acid Alex 3.4 H* (0.7-2.0) mmol/L Total Bilirubin (0.2-1.3) mg/dL AST (14-36) U/L ALT (4-34) U/L Alkaline Phosphatase (38-126) U/L Ammonia 44 H (<30) umol/L Total Protein (6.3-8.2) g/dL Albumin (3.5-5.0) g/dL Ur Specific Hollister (1.001-1.035) Urine Protein (Negative) Urine Bilirubin (Negative) 11/22/20 11/22/20 11/22/20 Range/Units 10:55 12:42 16:37 WBC (3.8-10.6) k/uL RBC (3.80-5.40) m/uL Hgb (11.4-16.0) gm/dL Hct (34.0-46.0) % Plt Count (150-450) k/uL Neutrophils # (1.3-7.7) k/uL Lymphocytes # (1.0-4.8) k/uL PT (9.0-12.0) sec INR (<1.2) APTT (22.0-30.0) sec Potassium (3.5-5.1) mmol/L BUN (7-17) mg/dL Glucose (74-99) mg/dL Plasma Lactic Acid Alex 2.6 H* 4.4 H* (0.7-2.0) mmol/L Total Bilirubin (0.2-1.3) mg/dL AST (14-36) U/L ALT (4-34) U/L Alkaline Phosphatase (38-126) U/L Ammonia (<30) umol/L Total Protein (6.3-8.2) g/dL Albumin (3.5-5.0) g/dL Ur Specific Hollister 1.050 H (1.001-1.035) Urine Protein Trace H (Negative) Urine Bilirubin 1+ H (Negative) Diabetes panel 11/22/20 Range/Units 04:55 Sodium 137 (137-145) mmol/L Potassium 3.2 L (3.5-5.1) mmol/L Chloride 100 (98-107) mmol/L Carbon Dioxide 27 (22-30) mmol/L BUN 6 L (7-17) mg/dL Creatinine 0.53 (0.52-1.04) mg/dL Glucose 101 H (74-99) mg/dL Calcium 8.4 (8.4-10.2) mg/dL AST 154 H (14-36) U/L ALT 47 H (4-34) U/L Alkaline Phosphatase 252 H (38-126) U/L Total Protein 8.8 H (6.3-8.2) g/dL Albumin 3.1 L (3.5-5.0) g/dL Calcium panel 11/22/20 Range/Units 04:55 Calcium 8.4 (8.4-10.2) mg/dL Albumin 3.1 L (3.5-5.0) g/dL Pituitary panel 11/22/20 Range/Units 04:55 Sodium 137 (137-145) mmol/L Potassium 3.2 L (3.5-5.1) mmol/L Chloride 100 (98-107) mmol/L Carbon Dioxide 27 (22-30) mmol/L BUN 6 L (7-17) mg/dL Creatinine 0.53 (0.52-1.04) mg/dL Glucose 101 H (74-99) mg/dL Calcium 8.4 (8.4-10.2) mg/dL Adrenal panel 11/22/20 Range/Units 04:55 Sodium 137 (137-145) mmol/L Potassium 3.2 L (3.5-5.1) mmol/L Chloride 100 (98-107) mmol/L Carbon Dioxide 27 (22-30) mmol/L BUN 6 L (7-17) mg/dL Creatinine 0.53 (0.52-1.04) mg/dL Glucose 101 H (74-99) mg/dL Calcium 8.4 (8.4-10.2) mg/dL Total Bilirubin 6.6 H (0.2-1.3) mg/dL AST 154 H (14-36) U/L ALT 47 H (4-34) U/L Alkaline Phosphatase 252 H (38-126) U/L Total Protein 8.8 H (6.3-8.2) g/dL Albumin 3.1 L (3.5-5.0) g/dL Assessment and Plan (1) Acute liver failure Status: Acute Code(s): K72.00 - ACUTE AND SUBACUTE HEPATIC FAILURE WITHOUT COMA SNOMED Code(s): 500666153 (2) Alcoholic cirrhosis of liver with ascites Status: Acute Code(s): K70.31 - ALCOHOLIC CIRRHOSIS OF LIVER WITH ASCITES SNOMED Code(s): 190580245 (3) Jaundice Status: Acute Code(s): R17 - UNSPECIFIED JAUNDICE SNOMED Code(s): 91815770 (4) Jaundice due to hepatitis Status: Acute Code(s): K75.9 - INFLAMMATORY LIVER DISEASE, UNSPECIFIED SNO MED Code(s): 26886149 (5) Right upper quadrant abdominal pain Status: Acute Code(s): R10.11 - RIGHT UPPER QUADRANT PAIN SNOMED Code(s): 808329023
[2020-11-22 18:54] LABS: Mononuclear WBC,Body Fluid 6 %; Polynuclear WBC,Body Fluid 94 %; Total Cells Counted,Body Fluid 100
[2020-11-22] MEDS ORDERED: SODIUM CHLORIDE 0.9% 500 ML 250 ML IV ONE (22:22)
[2020-11-23] MEDS ORDERED: SODIUM CHLORIDE 0.9% 500 ML 500 ML IV ONE ×2 (00:32→07:35)
[2020-11-23] MEDS ORDERED: ALBUMIN HUMAN 5% 500 ML in EMPTY BAG 1 BAG IVPB STA (00:45)
[2020-11-23] MEDS ORDERED: PIPERACILLIN-TAZOBACTAM 3.375 GM in SODIUM CHLORIDE 0.9% 100 ML IVPB SCH ×3 (01:00→16:00)
[2020-11-23] MEDS ORDERED: ALBUMIN HUMAN 5% 500 ML in EMPTY BAG 1 BAG IVPB ONE ×2 (01:00→09:16)
[2020-11-23 01:41] LABS: Glucose,Whole Blood 85 mg/dL (75-99)
[2020-11-23 03:46] LABS: Total Protein, Body Fluid 1020 mg/dL
[2020-11-23] MEDS: NOREPINEPHRINE 4 MG in SODIUM CHLORIDE 0.9% 250 ML IV SCH ×5 (04:15→21:18)
[2020-11-23 04:31] LABS: Basophils % (A) 0 %; Eosinophils % (A) 0 %; HCT 27.5 % (34.0-46.0); HGB 9.3 gm/dL (11.4-16.0); Lymphocytes # (A) 1.4 k/uL (1.0-4.8); Lymphocytes % (A) 10 %; MCH 34.7 pg (25.0-35.0); MCHC 33.7 g/dL (31.0-37.0); Macrocytosis Slight; Mean Platelet Volume 8.9; Monocytes # (A) 0.6 k/uL (0-1.0); Monocytes % (A) 4 %; Neutrophils # (A) 11.3 k/uL (1.3-7.7); Neutrophils % (A) 84 %; Platelet Count 110 k/uL (150-450); RBC 2.67 m/uL (3.80-5.40); WBC 13.4 k/uL (3.8-10.6)
[2020-11-23 04:42] LABS: ALT 37 U/L (4-34); AST 109 U/L (14-36); African American GFR (CKD) 61 (>60 ml/min/1.73 sqM); Albumin 2.9 g/dL (3.5-5.0); Albumin/Globulin Ratio 0.6; Alkaline Phosphatase 105 U/L (38-126); Anion Gap 10 mmol/L; Blood Urea Nitrogen 13 mg/dL (7-17); Calcium 8.5 mg/dL (8.4-10.2); Carbon Dioxide 23 mmol/L (22-30); Chloride 104 mmol/L (98-107); Globulin 4.8 g/dL; Glucose 67 mg/dL (74-99); INR 2.5 (<1.2); Magnesium 1.2 mg/dL (1.6-2.3); Non-African American GFR(CKD) 53 (>60 ml/min/1.73 sqM); Potassium 3.4 mmol/L (3.5-5.1); Prothrombin Time 24.3 sec (9.0-12.0); Sodium 137 mmol/L (137-145); Total Bilirubin 7.2 mg/dL (0.2-1.3); Total Protein 7.7 g/dL (6.3-8.2)
[2020-11-23] MEDS ORDERED: Potassium Replacement Protocol 1 EACH MISC MISCELLANE PRN (04:45)
[2020-11-23] MEDS ORDERED: Magnesium Replacement Protocol 1 EACH MISC MISCELLANE PRN (04:45)
[2020-11-23 04:47] LABS: Lactic Acid, Venous 4.9 mmol/L (0.7-2.0)
[2020-11-23 04:53] LABS: LDH, Body Fluid Source Paracentesis Fluid
[2020-11-23 04:54] LABS: Albumin, Fluid Source Paracentesis Fluid
[2020-11-23] MEDS: POTASSIUM CHLORIDE ER 20 MEQ TAB.ER PO SCH ×4 (05:41→08:31)
[2020-11-23] MEDS: MAGNESIUM SULFATE-D5W PMX 1 GM in DEXTROSE/WATER 1 100ML.BAG IVPB SCH ×3 (05:42→08:19)
[2020-11-23] MEDS: MORPHINE SULFATE 4 MG/ML SYRINGE IV PRN ×3 (06:00→18:16)
[2020-11-23] MEDS: PANTOPRAZOLE 40 MG/10 ML VIAL IV SCH (08:18)
[2020-11-23] MEDS: LACTULOSE 20 GM/30 ML CUP PO SCH (08:18)
[2020-11-23] MEDS: SODIUM CHLORIDE 0.9% 1,000 ML IV SCH ×2 (08:19→22:48)
[2020-11-23 08:23] LABS: Glucose,Whole Blood 107 mg/dL (75-99)
[2020-11-23] MEDS: ONDANSETRON 4 MG/2 ML VIAL IVP PRN (08:35)
[2020-11-23] MEDS ORDERED: SODIUM CHLORIDE 0.9% 1,000 ML IV ONE (09:16)
--- NOTE | 2020-11-23 11:19 | P.CNPUL ---
History of Present Illness Consult date: 11/23/20 Requesting physician: Marry Griffiths Reason for consult: other (Critical care management) Chief complaint: Abdominal pain History of present illness: This is a 50-year-old female patient who has a history of alcoholism with her last drink 10/18/2020 consuming approximately 2 pints per day. She resides in [place] and was to be seeing a liver specialist out of [facility] this week after recently being diagnosed with liver/gallbladder disease. She was in the area camping at [facility] when she developed significant right upper quadrant and diffuse abdominal pain and bloating and presented here to the emergency room yesterday. Abdominal ultrasound revealed hepatocellular disease. Hepatomegaly with surrounding ascites. Gallbladder findings may be a product of underlying liver disease. Acute cholecystitis not entirely excluded. Computed tomography scan of the abdomen revealed cirrhotic morphology of the liver. Extensive heterogeneity dizziness enhancement of the liver likely due to cirrhosis. There are couple hypodense lesions of the right liver lobe measuring up to 7 mm. The presence of moderate ascites and lower esophageal varices suggests portal venous hypertension. Bile duct dilated at 1.1 cm. Hydropic gallbladder. Thickening noted. There is also moderate to severe wall thickening of the right side of the colon could represent significant nons pecific colitis. Possible bowel wall edema from hypoalbuminemia. Diagnostic paracentesis performed yesterday with 5 mL of yellow fluid removed. Blood cultures positive for E. coli. Paracentesis fluid analysis was cloudy with 150 RBCs, 7700 nucleated cells, 94 WBCs, total protein thousand 20, albumin less than 1, fluid LDH 97.. White count 13.4. Hemoglobin 9.3. Platelet count 110,000. Neutrophils 11.3. INR 2.5. Sodium 137. Potassium 4.0. Creatinine 1.20. Glucose 107. Initial lactic acid 4.7. Currently 3.9. AST 109. ALT 37. Alk phos 105. Albumin 2.9. Amylase 60. Lipase 82. Urinalysis with trace protein. 1+ bilirubin. Serum alcohol less than 10. Watts virus not detected. The patient is seen today in consultation in the intensive care unit. She is currently resting in bed. Awake and alert in no acute distress. On room air. She is having ongoing issues with abdominal discomfort. She is bloated and uncomfortable. She has been hypotensive requiring pressors currently on norepinephrine at 18 mcg/kg/m. She's received 2.5 L of fluid resuscitation. Current IV fluids at 40 ML's per hour 0.9 normal saline. She received albumin. She was receiving lactulose 3 times a day with liquid stools. She was initiated on Zosyn. She is be seen by general surgery with no surgical intervention planned. Review of Systems REVIEW OF SYSTEMS: CONSTITUTIONAL: Denies any recent significant weight loss or weight gain. EYES: Denies change in vision. EARS, NOSE, MOUTH, THROAT: Denies headaches, denies sore throat. CARDIOVASCULAR: Denies chest pain, palpitations or syncopal episodes. RESPIRATORY: Denies shortness of breath, cough, congestion or hemoptysis. GASTROINTESTINAL: Positive for abdominal pain, discomfort, bloating GENITOURINARY: Denies hematuria, denies infections. MUSKULOSKELETAL: Denies pain, denies swelling. INTEGUMENTARY: Denies rash, denies eczema. NEUROLOGICAL: Denies recent memory loss, no recent seizure activity. PSYCHIATRIC: Denies anxiety, denies depression. HEMATOLOGIC/LYMPHATIC: Denies anemia, denies enlarged lymph nodes. Past Medical History Past Medical History: GERD/Reflux Additional Past Medical History / Comment(s): Pt admitted to [facility] in [place] on 10/18/20 with gallbladder disease and told she may have liver cirrhosis. Pt states she was a heavy drinker but has not drank since 10/18/20. History of Any Multi-Drug Resistant Organisms: None Reported Past Surgical History: Tubal Ligation Additional Past Surgical History / Comment(s): tubal Past Anesthesia/Blood Transfusion Reactions: No Reported Reaction Smoking Status: Current every day smoker - Past Family History Father History Unknown: Yes Mother Family Medical History: Cancer Additional Family Medical History / Comment(s): Mother has survived 3 different types of cancer. Medications and Allergies Home Medications Medication Instructions Recorded Confirmed Type Albuterol Sulfate [Proair Hfa] 1 - 2 puff INHALATION RT-QID PRN 11/22/20 11/22/20 History Budesonide/Formoterol Fumarate 2 puff INHALATION RT-BID 11/22/20 11/22/20 History [Symbicort 80-4.5 Mcg Inhaler] Omeprazole [PriLOSEC] 20 mg PO AC-BRKFST 11/22/20 11/22/20 History Allergies Allergy/AdvReac Type Severity Reaction Status Date / Time No Known Allergies Allergy Verified 11/22/20 07:27 Physical Exam Vitals: Vital Signs Temp Pulse Pulse Resp BP BP Pulse Ox 11/23/20 08:30 113 H 16 91/36 97 11/23/20 08:00 98.0 F 106 H 14 94/38 98 11/23/20 07:30 103 H 12 84/34 94 L 11/23/20 07:00 94 15 92/36 96 11/23/20 06:30 98 13 93/40 98 11/23/20 06:00 105 H 15 84/45 95 11/23/20 05:30 98 12 92/41 96 11/23/20 05:00 96 12 91/43 95 11/23/20 04:30 96 16 88/42 95 11/23/20 04:00 98.6 F 93 12 91/45 96 11/23/20 03:30 95 13 85/45 97 11/23/20 03:00 93 17 87/41 96 11/23/20 02:30 93 14 92/40 97 11/23/20 02:00 98 14 90/42 96 11/22/20 22:08 97.9 F 78 20 83/41 95 11/22/20 19:46 99.3 F 95 12 88/46 96 11/22/20 19:40 20 11/22/20 16:14 98.2 F 78 18 93/50 95 11/22/20 15:45 100 16 97/42 97 11/22/20 15:33 99 18 85/41 98 11/22/20 15:29 104 H 16 89/44 98 11/22/20 15:16 97 16 92/44 98 11/22/20 13:48 100 16 101/43 98 11/22/20 12:10 100 18 101/48 100 Intake and Output 11/22/20 11/23/20 11/23/20 22:59 06:59 14:59 Intake Total 640 1376.807 889.811 Output Total 0 Balance 640 1376.807 889.811 Intake: IV 640 1220 260 Albumin Human 5% 500 ml 500 In Empty Bag 1 bag @ 500 mls/hr IVPB ONCE ONE Rx#: [id number] Magnesium Sulfate-D5w Pmx 300 100 1 gm In Dextrose/Water 1 100ml.bag @ 100 mls/hr IVPB Q1H [facility] Rx#: [id number] Piperacillin-Tazobactam 3 100 .375 gm In Sodium Chloride 0.9% 100 ml @ 25 mls/hr IVPB Q6H [facility] Rx#: [id number] Sodium Chloride 0.9% 1, 640 320 160 000 ml @ 80 mls/hr IV . [id number] [facility] Rx#:[id number] Intake, IV Titration 56.807 629.811 Amount Norepinephrine 4 mg In 56.807 29.811 Sodium Chloride 0.9% 250 ml @ 0.05 MCG/KG/MIN 9. 937 mls/hr IV .Q24H [facility] Rx#:[id number] Piperacillin-Tazobactam 3 100 .375 gm In Sodium Chloride 0.9% 100 ml @ 25 mls/hr IVPB Q6H [facility] Rx#: [id number] Sodium Chloride 0.9% 500 500 ml 500 ml @ 999 mls/hr IV .Q31M [facility] Rx#:[id number] Oral 100 Output: Urine 0 Other: Voiding Method Toilet Bedside Commode Bedpan # Voids 0 0 # Bowel Movements 1 Weight 60.9 kg GENERAL EXAM: Alert, on disc, pleasant 50-year-old female, on room air, c urrently with abdominal discomfort. HEAD: Normocephalic. EYES: Icteric. Normal reaction of pupils, equal size. NOSE: Clear with pink turbinates. THROAT: No erythema or exudates. NECK: No masses, no JVD. CHEST: No chest wall deformity. LUNGS: Equal air entry with no crackles, wheeze, rhonchi or dullness. CVS: S1 and S2 normal with no audible murmur, regular rhythm. ABDOMEN: Distended, tender, hepatomegaly SPINE: No scoliosis or deformity SKIN: No rashes CENTRAL NERVOUS SYSTEM: No focal deficits, tone is normal in all 4 extremities. EXTREMITIES: There is no peripheral edema. No clubbing, no cyanosis. Peripheral pulses are intact. Results - Laboratory Findings CBC and BMP: 11/23/20 03:28 11/23/20 08:01 PT/INR, D-dimer PT 24.3 sec (9.0-12.0) H 11/23/20 03:28 INR 2.5 (<1.2) H 11/23/20 03:28 Abnormal lab findings: Abnormal Labs 11/22/20 11/22/20 11/22/20 04:55 04:55 04:55 WBC 11.7 H RBC 3.12 L Hgb 10.4 L Hct 31.2 L MCV Plt Count 101 L Neutrophils # 9.9 H Lymphocytes # 0.9 L PT INR APTT Potassium 3.2 L BUN 6 L Creatinine Glucose 101 H POC Glucose (mg/dL) Plasma Lactic Acid Alex 2.7 H* Magnesium Total Bilirubin 6.6 H AST 154 H ALT 47 H Alkaline Phosphatase 252 H Ammonia Total Protein 8.8 H Albumin 3.1 L Ur Specific [place] Urine Protein Urine Bilirubin 11/22/20 11/22/20 11/22/20 06:44 06:44 09:33 WBC RBC Hgb Hct MCV Plt Count Neutrophils # Lymphocytes # PT 20.8 H INR 2.1 H APTT 39.7 H Potassium BUN Creatinine Glucose POC Glucose (mg/dL) Plasma Lactic Acid Alex 3.4 H* Magnesium Total Bilirubin AST ALT Alkaline Phosphatase Ammonia 44 H Total Protein Albumin Ur Specific [place] Urine Protein Urine Bilirubin 11/22/20 11/22/20 11/22/20 10:55 12:42 16:37 WBC RBC Hgb Hct MCV Plt Count Neutrophils # Lymphocytes # PT INR APTT Potassium BUN Creatinine Glucose POC Glucose (mg/dL) Plasma Lactic Acid Alex 2.6 H* 4.4 H* Magnesium Total Bilirubin AST ALT Alkaline Phosphatase Ammonia Total Protein Albumin Ur Specific [place] 1.050 H Urine Protein Trace H Urine Bilirubin 1+ H 11/22/20 11/22/20 11/23/20 20:12 23:05 03:28 WBC 13.4 H RBC 2.67 L Hgb 9.3 L Hct 27.5 L MCV 103.0 H Plt Count 110 L Neutrophils # 11.3 H Lymphocytes # PT INR APTT Potassium BUN Creatinine Glucose POC Glucose (mg/dL) Plasma Lactic Acid Alex 4.4 H* 4.7 H* Magnesium Total Bilirubin AST ALT Alkaline Phosphatase Ammonia Total Protein Albumin Ur Specific [place] Urine Protein Urine Bilirubin 11/23/20 11/23/20 11/23/20 03:28 03:28 03:28 WBC RBC Hgb Hct MCV Plt Count Neutrophils # Lymphocytes # PT 24.3 H INR 2.5 H APTT Potassium 3.4 L BUN Creatinine 1.20 H Glucose 67 L POC Glucose (mg/dL) Plasma Lactic Acid Alex 4.9 H* Magnesium 1.2 L Total Bilirubin 7.2 H AST 109 H ALT 37 H Alkaline Phosphatase Ammonia Total Protein Albumin 2.9 L Ur Specific [place] Urine Protein Urine Bilirubin 11/23/20 11/23/20 07:17 08:22 WBC RBC Hgb Hct MCV Plt Count Neutrophils # Lymphocytes # PT INR APTT Potassium BUN Creatinine Glucose POC Glucose (mg/dL) 107 H Plasma Lactic Acid Alex 3.9 H* Magnesium Total Bilirubin AST ALT Alkaline Phosphatase Ammonia Total Protein Albumin Ur Specific [place] Urine Protein Urine Bilirubin Assessment and Plan Assessment: 1 Acute abdominal pain secondary to ascites, cirrhotic liver 2 Septic shock secondary to E. coli bacteremia with possible spontaneous bacteremia peritonitis versus ischemic colitis. Status post diagnostic paracentesis 3 Lactic acidosis secondary to above 4 Coagulopathy secondary to above, INR 2.5 5 Anemia 6 Mild transaminitis secondary to above 7 History of heavy alcohol abuse with last drink 10/18/2020 8 Recent diagnosis of liver/gallbladder disease and was to see hepatic specialist this week out of the [facility] 9 Chronic and ongoing tobacco dependence Plan: The patient was seen and evaluated by Dr. Sanchez Given additional 1 L fluid bolus Increased 0.9 normal saline to 100 ML's per hour Decrease lactulose to daily Give additional 500 mL albumin 5% Titrate the pressors as tolerated Midline to be placed GI and general surgery consulted We will continue to follow and make further recommendations based on her clinical status I, the cosigning physician, performed a history & physical examination of the patient. Lungs sounds are clear. Maintaining good O2 saturations in the 90s on room air. I discussed the assessment and plan of care with my nurse practitioner, Janay Gonzalez. I attest to the above consultation as dictated by her. Add SCDs for now Continue [facility] GI and surgical services consulted We will continue to follow make further recommendations based on her clinical status Time with Patient: Greater than 30
[2020-11-23 12:03] LABS: Glucose,Whole Blood 126 mg/dL (75-99)
[2020-11-23] MEDS ORDERED: LIDOCAINE 2% (PF) 20 MG/ML 5 ML VIAL ONE (12:19)
[2020-11-23] MEDS ORDERED: PHYTONADIONE ORAL 5 MG/5 ML ORAL.SYRG PO STA (13:41)
--- NOTE | 2020-11-23 14:05 | P.PN ---
Subjective Progress Note Date: 11/23/20 Patient clinical condition deteriorated overnight requiring transfer to ICU secondary to hypotension requiring vasopressors. Patient is awake and alert. She denies any abdominal pain. She reported poor appetite. Objective - Vital Signs Vital signs: Vital Signs Temp 98.7 F 11/23/20 12:00 Pulse 110 H 11/23/20 12:30 Resp 15 11/23/20 12:30 BP 102/52 11/23/20 12:00 Pulse Ox 95 11/23/20 12:30 Intake & Output 11/22/20 11/23/20 11/23/20 18:59 06:59 18:59 Intake Total 640 4024.346 7442.193 Output Total 200 Balance 640 3558.421 9745.193 Weight 52.163 kg 60.9 kg Intake: IV 640 1220 640 Albumin Human 5% 500 ml 500 In Empty Bag 1 bag @ 500 mls/hr IVPB ONCE ONE Rx#: [id number] Magnesium Sulfate-D5w Pmx 300 100 1 gm In Dextrose/Water 1 100ml.bag @ 100 mls/hr IVPB Q1H [facility] Rx#: [id number] Piperacillin-Tazobactam 3 100 .375 gm In Sodium Chloride 0.9% 100 ml @ 25 mls/hr IVPB Q6H [facility] Rx#: [id number] Sodium Chloride 0.9% 1, 640 320 540 000 ml @ 100 mls/hr IV . Q10H [facility] Rx#:[id number] Intake, IV Titration 56.807 1297.193 Amount Albumin Human 5% 500 ml 500 In Empty Bag 1 bag @ 500 mls/hr IVPB ONCE ONE Rx#: [id number] Norepinephrine 4 mg In 56.807 197.193 Sodium Chloride 0.9% 250 ml @ 0.05 MCG/KG/MIN 9. 937 mls/hr IV .Q24H [facility] Rx#:[id number] Piperacillin-Tazobactam 3 100 .375 gm In Sodium Chloride 0.9% 100 ml @ 25 mls/hr IVPB Q6H [facility] Rx#: [id number] Sodium Chloride 0.9% 500 500 ml 500 ml @ 999 mls/hr IV .Q31M [facility] Rx#:[id number] Oral 100 Output: Urine 200 Other: Voiding Method Bedside Commode Bedside Commode Bedpan Bedpan Diaper # Voids 0 0 # Bowel Movements 1 2 - Exam General: The patient is awake and alert, in no distress Eye: there is normal conjunctiva bilaterally. Neck: The neck is supple, there is no JVD. Cardiovascular: Normal S1-S2, no S3-S4, no murmurs. Respiratory: Lungs clear to auscultation bilaterally Gastrointestinal: Abdomen is distended with moderate tenderness Musculoskeletal: There is no pedal edema. Neurological:. Speech is normal. Skin: Skin is warm and dry - Labs CBC & Chem 7: 11/23/20 03:28 11/23/20 08:01 Labs: Abnormal Lab Results - Last 24 Hours (Table) 11/22/20 11/22/20 11/22/20 Range/Units 16:37 20:12 23:05 WBC (3.8-10.6) k/uL RBC (3.80-5.40) m/uL Hgb (11.4-16.0) gm/dL Hct (34.0-46.0) % MCV (80.0-100.0) fL Plt Count (150-450) k/uL Neutrophils # (1.3-7.7) k/uL PT (9.0-12.0) sec INR (<1.2) Potassium (3.5-5.1) mmol/L Creatinine (0.52-1.04) mg/dL Glucose (74-99) mg/dL POC Glucose (mg/dL) (75-99) mg/dL Plasma Lactic Acid Alex 4.4 H* 4.4 H* 4.7 H* (0.7-2.0) mmol/L Magnesium (1.6-2.3) mg/dL Total Bilirubin (0.2-1.3) mg/dL AST (14-36) U/L ALT (4-34) U/L Albumin (3.5-5.0) g/dL 11/23/20 11/23/20 11/23/20 Range/Units 03:28 03:28 03:28 WBC 13.4 H (3.8-10.6) k/uL RBC 2.67 L (3.80-5.40) m/uL Hgb 9.3 L (11.4-16.0) gm/dL Hct 27.5 L (34.0-46.0) % MCV 103.0 H (80.0-100.0) fL Plt Count 110 L (150-450) k/uL Neutrophils # 11.3 H (1.3-7.7) k/uL PT 24.3 H (9.0-12.0) sec INR 2.5 H (<1.2) Potassium 3.4 L (3.5-5.1) mmol/L Creatinine 1.20 H (0.52-1.04) mg/dL Glucose 67 L (74-99) mg/dL POC Glucose (mg/dL) (75-99) mg/dL Plasma Lactic Acid Alex (0.7-2.0) mmol/L Magnesium 1.2 L (1.6-2.3) mg/dL Total Bilirubin 7.2 H (0.2-1.3) mg/dL AST 109 H (14-36) U/L ALT 37 H (4-34) U/L Albumin 2.9 L (3.5-5.0) g/dL 11/23/20 11/23/20 11/23/20 Range/Units 03:28 07:17 08:22 WBC (3.8-10.6) k/uL RBC (3.80-5.40) m/uL Hgb (11.4-16.0) gm/dL Hct (34.0-46.0) % MCV (80.0-100.0) fL Plt Count (150-450) k/uL Neutrophils # (1.3-7.7) k/uL PT (9.0-12.0) sec INR (<1.2) Potassium (3.5-5.1) mmol/L Creatinine (0.52-1.04) mg/dL Glucose (74-99) mg/dL POC Glucose (mg/dL) 107 H (75-99) mg/dL Plasma Lactic Acid Alex 4.9 H* 3.9 H* (0.7-2.0) mmol/L Magnesium (1.6-2.3) mg/dL Total Bilirubin (0.2-1.3) mg/dL AST (14-36) U/L ALT (4-34) U/L Albumin (3.5-5.0) g/dL 11/23/20 11/23/20 Range/Units 10:13 12:01 WBC (3.8-10.6) k/uL RBC (3.80-5.40) m/uL Hgb (11.4-16.0) gm/dL Hct (34.0-46.0) % MCV (80.0-100.0) fL Plt Count (150-450) k/uL Neutrophils # (1.3-7.7) k/uL PT (9.0-12.0) sec INR (<1.2) Potassium (3.5-5.1) mmol/L Creatinine (0.52-1.04) mg/dL Glucose (74-99) mg/dL POC Glucose (mg/dL) 126 H (75-99) mg/dL Plasma Lactic Acid Alex 3.8 H* (0.7-2.0) mmol/L Magnesium (1.6-2.3) mg/dL Total Bilirubin (0.2-1.3) mg/dL AST (14-36) U/L ALT (4-34) U/L Albumin (3.5-5.0) g/dL Microbiology - Last 24 Hours (Table) 11/22/20 08:48 Blood Culture Gram Stain - Preliminary Blood Blood Culture - Preliminary Escherichia coli 11/22/20 15:29 Gram Stain - Preliminary Paracentesis Fluid Body Fluid Culture - Preliminary 11/22/20 08:48 Blood Culture - Final Blood 11/22/20 08:48 Blood Culture Gram Stain - Preliminary Blood Blood Culture - Preliminary Escherichia coli 11/22/20 15:29 Anaerobic Culture - Preliminary Paracentesis Fluid 11/22/20 08:48 Blood Culture - Final Blood Assessment and Plan Assessment: This is a 50-year-old female with very complex past medical history noted below who presented to the emergency room with worsening abdominal pain and distention. Patient was evaluated in the ER and was readmitted to the hospital for further management of her medical problems noted below. 1. Large ascites with suspected spontaneous bacterial peritonitis, patient was given a dose of IV Zosyn in the ER. I would continue with ceftriaxone 2 g daily IV. IR consulted but ascites fluid was pocketed and only a diagnostic tap was done with approximately 50 mL drained. 2. Severe sepsis with septic shock and E. coli bacteremia, continue aggressive IV fluid hydration. Patient received multiple boluses of normal saline. She is requiring low-dose vasopressors. Lactic acid improving. 3. Alcoholic liver cirrhosis with evidence of lower esophageal varices noted on computed tomography scan. Patient denies any history of variceal bleeds. GI consulted for further evaluation. 4. Coagulopathy, I would order another dose of 5 mg vitamin K today Repeat INR in the morning. 5. Thrombocytopenia, secondary to underlying liver disease 6. Hypokalemia, replacement ordered 7. Patient is full code Today, I reviewed her medication list and lab work results. Hold off diuretics until blood pressure improves. Continue ICU care. Appreciate cruise consultant's recommendations.
--- NOTE | 2020-11-23 18:25 | P.PN ---
Subjective Progress Note Date: 11/23/20 CHIEF COMPLAINT: Abdominal pain HISTORY OF PRESENT ILLNESS: The patient is a 50 year old female who presented with acute liver failure with ascites and right upper quadrant abdominal pain. She's now been transferred to intensive care unit. She reports her abdominal pain is improved. She is on regular diet. She reports chronic diarrhea. Gastroenterology is following. REVIEW OF ORGAN SYSTEMS: No chest pain. No fevers or chills. Has no diarrhea. PHYSICAL EXAM: VITALS: Reviewed CONSTITUTIONAL: Well developed and in no acute distress. EYES: Conjuctivae with sclera icterus. Extraocular movements grossly intact. HEAD, EARS, NOSE, THROAT: Moist buccal mucosa. Head is atraumatic, normocepha lic. Hears conversational speech. RESPIRATORY: Non labored breathing. No gross wheezes. CARDIOVASCULAR: Palpable 2+ radial pulses. ABDOMEN: Abdominal swelling with ascites. NEUROLOGIC: Cranial nerves II through XII grossly intact. No focal or lateralizing signs. MUSCULOSKELETAL: No bilateral calf pain. PSYCH: Alert and oriented to person, place, time. CLINCAL LABS: Reviewed. Lactic acid elevated over 2.0. ASSESSMENT: 1. Acute fulminant liver failure with alcoholic liver cirrhosis 2. Abdominal ascites 3. Jaundice secondary to acute fulminant liver failure 4. Right upper quadrant abdominal pain improving PLAN: 1. Management per GI for acute fulminant liver failure. No surgical intervention in presence of acute pulmonary liver failure 2. Continue conservative management Objective - Vital Signs Vital signs: Vital Signs Temp 98.7 F 11/23/20 12:00 Pulse 111 H 11/23/20 18:00 Resp 18 11/23/20 18:00 BP 102/52 11/23/20 12:00 Pulse Ox 95 11/23/20 18:00 Intake & Output 11/22/20 11/23/20 11/23/20 18:59 06:59 18:59 Intake Total 640 7427.305 6204.450 Output Total 325 Balance 640 5581.830 4113.450 Weight 52.163 kg 60.9 kg Intake: IV 640 1220 1240 Albumin Human 5% 500 ml 500 In Empty Bag 1 bag @ 500 mls/hr IVPB ONCE ONE Rx#: [id number] Magnesium Sulfate-D5w Pmx 300 100 1 gm In Dextrose/Water 1 100ml.bag @ 100 mls/hr IVPB Q1H [facility] Rx#: [id number] Piperacillin-Tazobactam 3 100 .375 gm In Sodium Chloride 0.9% 100 ml @ 25 mls/hr IVPB Q6H [facility] Rx#: [id number] Sodium Chloride 0.9% 1, 722 653 2723 000 ml @ 100 mls/hr IV . Q10H [facility] Rx#:[id number] Intake, IV Titration 56.807 1668.450 Amount Albumin Human 5% 500 ml 500 In Empty Bag 1 bag @ 500 mls/hr IVPB ONCE ONE Rx#: [id number] Norepinephrine 4 mg In 56.807 568.450 Sodium Chloride 0.9% 250 ml @ 0.05 MCG/KG/MIN 9. 937 mls/hr IV .Q24H [facility] Rx#:[id number] Piperacillin-Tazobactam 3 100 .375 gm In Sodium Chloride 0.9% 100 ml @ 25 mls/hr IVPB Q6H [facility] Rx#: [id number] Sodium Chloride 0.9% 500 500 ml 500 ml @ 999 mls/hr IV .Q31M [facility] Rx#:[id number] Oral 100 400 Output: Urine 325 Other: Voiding Method Bedside Commode Bedside Commode Bedpan Bedpan Diaper # Voids 0 0 # Bowel Movements 1 2 ABP, PAP, CO, CI - Last Documented Arterial Blood Pressure 134/53 - Labs CBC & Chem 7: 11/23/20 03:28 11/23/20 08:01 Labs: Abnormal Lab Results - Last 24 Hours (Table) 11/22/20 11/22/20 11/23/20 Range/Units 20:12 23:05 03:28 WBC 13.4 H (3.8-10.6) k/uL RBC 2.67 L (3.80-5.40) m/uL Hgb 9.3 L (11.4-16.0) gm/dL Hct 27.5 L (34.0-46.0) % MCV 103.0 H (80.0-100.0) fL Plt Count 110 L (150-450) k/uL Neutrophils # 11.3 H (1.3-7.7) k/uL PT (9.0-12.0) sec INR (<1.2) Potassium (3.5-5.1) mmol/L Creatinine (0.52-1.04) mg/dL Glucose (74-99) mg/dL POC Glucose (mg/dL) (75-99) mg/dL Plasma Lactic Acid Alex 4.4 H* 4.7 H* (0.7-2.0) mmol/L Magnesium (1.6-2.3) mg/dL Total Bilirubin (0.2-1.3) mg/dL AST (14-36) U/L ALT (4-34) U/L Albumin (3.5-5.0) g/dL 11/23/20 11/23/20 11/23/20 Range/Units 03:28 03:28 03:28 WBC (3.8-10.6) k/uL RBC (3.80-5.40) m/uL Hgb (11.4-16.0) gm/dL Hct (34.0-46.0) % MCV (80.0-100.0) fL Plt Count (150-450) k/uL Neutrophils # (1.3-7.7) k/uL PT 24.3 H (9.0-12.0) sec INR 2.5 H (<1.2) Potassium 3.4 L (3.5-5.1) mmol/L Creatinine 1.20 H (0.52-1.04) mg/dL Glucose 67 L (74-99) mg/dL POC Glucose (mg/dL) (75-99) mg/dL Plasma Lactic Acid Alex 4.9 H* (0.7-2.0) mmol/L Magnesium 1.2 L (1.6-2.3) mg/dL Total Bilirubin 7.2 H (0.2-1.3) mg/dL AST 109 H (14-36) U/L ALT 37 H (4-34) U/L Albumin 2.9 L (3.5-5.0) g/dL 11/23/20 11/23/20 11/23/20 Range/Units 07:17 08:22 10:13 WBC (3.8-10.6) k/uL RBC (3.80-5.40) m/uL Hgb (11.4-16.0) gm/dL Hct (34.0-46.0) % MCV (80.0-100.0) fL Plt Count (150-450) k/uL Neutrophils # (1.3-7.7) k/uL PT (9.0-12.0) sec INR (<1.2) Potassium (3.5-5.1) mmol/L Creatinine (0.52-1.04) mg/dL Glucose (74-99) mg/dL POC Glucose (mg/dL) 107 H (75-99) mg/dL Plasma Lactic Acid Alex 3.9 H* 3.8 H* (0.7-2.0) mmol/L Magnesium (1.6-2.3) mg/dL Total Bilirubin (0.2-1.3) mg/dL AST (14-36) U/L ALT (4-34) U/L Albumin (3.5-5.0) g/dL 11/23/20 11/23/20 11/23/20 Range/Units 12:01 14:11 18:00 WBC (3.8-10.6) k/uL RBC (3.80-5.40) m/uL Hgb (11.4-16.0) gm/dL Hct (34.0-46.0) % MCV (80.0-100.0) fL Plt Count (150-450) k/uL Neutrophils # (1.3-7.7) k/uL PT (9.0-12.0) sec INR (<1.2) Potassium (3.5-5.1) mmol/L Creatinine (0.52-1.04) mg/dL Glucose (74-99) mg/dL POC Glucose (mg/dL) 126 H (75-99) mg/dL Plasma Lactic Acid Alex 3.8 H* 2.8 H* (0.7-2.0) mmol/L Magnesium (1.6-2.3) mg/dL Total Bilirubin (0.2-1.3) mg/dL AST (14-36) U/L ALT (4-34) U/L Albumin (3.5-5.0) g/dL Microbiology - Last 24 Hours (Table) 11/22/20 08:48 Blood Culture Gram Stain - Preliminary Blood Blood Culture - Preliminary Escherichia coli 11/22/20 15:29 Gram Stain - Preliminary Paracentesis Fluid Body Fluid Culture - Preliminary 11/22/20 08:48 Blood Culture - Final Blood 11/22/20 08:48 Blood Culture Gram Stain - Preliminary Blood Blood Culture - Preliminary Escherichia coli 11/22/20 15:29 Anaerobic Culture - Preliminary Paracentesis Fluid 11/22/20 08:48 Blood Culture - Final Blood Assessment and Plan (1) Acute liver failure Current Visit: Yes Status: Acute Code(s): K72.00 - ACUTE AND SUBACUTE HEPATIC FAILURE WITHOUT COMA SNOMED Code(s): 599656813 (2) Alcoholic cirrhosis of liver with ascites Current Visit: Yes Status: Acute Code(s): K70.31 - ALCOHOLIC CIRRHOSIS OF LIVER WITH ASCITES SNOMED Code(s): 355610087 (3) Right upper quadrant abdominal pain Current Visit: Yes Status: Acute Code(s): R10.11 - RIGHT UPPER QUADRANT PAIN SNOMED Code(s): 437276781 (4) Jaundice Current Visit: Yes Status: Acute Code(s): R17 - UNSPECIFIED JAUNDICE SNOMED Code(s): 18925528 (5) Jaundice due to hepatitis Current Visit: Yes Status: Acute Code(s): K75.9 - INFLAMMATORY LIVER DISEASE, UNSPECIFIED SNOMED Code(s): 17615744
[2020-11-24] MEDS ORDERED: BUDESONIDE 0.5 MG/2 ML NEBU INHALATION PRN (00:31)
[2020-11-24] MEDS ORDERED: SYMBICORT 80-4.5 MCG INHALER INHALATION PRN (00:47)
[2020-11-24] MEDS: NOREPINEPHRINE 4 MG in SODIUM CHLORIDE 0.9% 250 ML IV SCH ×2 (01:31→06:38)
[2020-11-24 05:03] LABS: ALT 37 U/L (4-34); AST 89 U/L (14-36); African American GFR (CKD) >90 (>60 ml/min/1.73 sqM); Albumin 2.8 g/dL (3.5-5.0); Alkaline Phosphatase 98 U/L (38-126); Anion Gap 5 mmol/L; Blood Urea Nitrogen 19 mg/dL (7-17); Calcium 8.7 mg/dL (8.4-10.2); Carbon Dioxide 23 mmol/L (22-30); Chloride 107 mmol/L (98-107); Glucose 115 mg/dL (74-99); Non-African American GFR(CKD) 87 (>60 ml/min/1.73 sqM); Potassium 3.6 mmol/L (3.5-5.1); Sodium 135 mmol/L (137-145); Total Protein 7.5 g/dL (6.3-8.2)
[2020-11-24 05:08] LABS: INR 2.1 (<1.2); Prothrombin Time 20.6 sec (9.0-12.0)
[2020-11-24 05:36] LABS: HCT 26.2 % (34.0-46.0); HGB 8.8 gm/dL (11.4-16.0); MCH 34.2 pg (25.0-35.0); MCHC 33.6 g/dL (31.0-37.0); MCV 101.8 fL (80.0-100.0); Macrocytosis Slight; Mean Platelet Volume 8.5; Platelet Count 134 k/uL (150-450); RBC 2.57 m/uL (3.80-5.40); WBC 16.5 k/uL (3.8-10.6)
[2020-11-24 06:20] LABS: Band Neutrophils % 5 %; Lymphocytes # (M) 1.98 k/uL (1.0-4.8); Neutrophils % (M) 80 %; Nucleated Red Blood Cells 0 /100 WBC (0-0); Total Cells Counted 100
[2020-11-24 06:21] LABS: Toxic Vacuolation Present
[2020-11-24 06:25] LABS: Polychromasia Present
[2020-11-24] MEDS ORDERED: POTASSIUM CHLORIDE ER 20 MEQ TAB.ER PO SCH (07:00)
[2020-11-24] MEDS ORDERED: LACTULOSE 20 GM/30 ML CUP PO SCH (09:00)
--- NOTE | 2020-11-24 10:21 | P.PN ---
Subjective Progress Note Date: 11/24/20 Principal diagnosis: Bacteremia, suspect spontaneous bacteria peritonitis versus colitis This is a 50-year-old female patient who has a history of alcoholism with her last drink 10/18/2020 consuming approximately 2 pints per day. She resides in [place] and was to be seeing a liver specialist out of [facility] this week after recently being diagnosed with liver/gallbladder disease. She was in the area camping at [facility] when she developed significant right upper quadrant and diffuse abdominal pain and bloating and presented here to the emergency room yesterday. Abdominal ultrasound revealed hepatocellular disease. Hepatomegaly with surrounding ascites. Gallbladder findings may be a product of underlying liver disease. Acute cholecystitis not entirely excluded. Computed tomography scan of the abdomen revealed cirrhotic morphology of the liver. Extensive heterogeneity dizziness enhancement of the liver likely due to cirrhosis. There are couple hypodense lesions of the right liver lobe measuring up to 7 mm. The presence of moderate ascites and lower esophageal varices suggests portal venous hypertension. Bile duct dilated at 1.1 cm. Hydropic gallbladder. Thickening noted. There is also moderate to severe wall thickening of the right side of the colon could represent significant nonspecific colitis. Possible bowel wall edema from hypoalbuminemia. Diagnostic paracentesis performed yesterday with 5 mL of yellow fluid removed. Blood cultures positive for E. coli. Paracentesis fluid analysis was cloudy with 150 RBCs, 7700 nucleated cells, 94 WBCs, total protein thousand 20, albumin less than 1, fluid LDH 97.. White count 13.4. Hemoglobin 9.3. Platelet count 110,000. Neutrophils 11.3. INR 2.5. Sodium 137. Potassium 4.0. Creatinine 1.20. Glucose 107. Initial lactic acid 4.7. Currently 3.9. AST 109. ALT 37. Alk phos 105. Albumin 2.9. Amylase 60. Lipase 82. Urinalysis with trace protein. 1+ bilirubin. Serum alcohol less than 10. Watts virus not detected. The patient is seen today in consultation in the intensive care unit. She is currently resting in bed. Awake and alert in no acute distress. On room air. She is having ongoing issues with abdominal discomfort. She is bloated and uncomfortable. She has been hypotensive requiring pressors currently on norepinephrine at 18 mcg/kg/m. She's received 2.5 L of fluid resuscitation. Current IV fluids at 40 ML's per hour 0.9 normal saline. She received albumin. She was receiving lactulose 3 times a day with liquid stools. She was initiated on Zosyn. She is be seen by general surgery with no surgical intervention planned. The patient was seen today 11/24/2020 in follow-up in the intensive care unit. She remains awake and alert in no acute distress. Maintaining O2 saturation in low 90s on room air. She's afebrile. Hemodynamically stable. Norepinephrine was discontinued at 7 AM today. Yesterday she received an extra liter of fluid and albumin. Initial blood cultures were positive for E. coli. Follow-up cultures pending. Paracentesis fluid cultures pending. She was initially on Zosyn, currently on ceftriaxone. Her diffuse abdominal discomfort has subsided. Still with some right upper quadrant tenderness. White count 16.5. Hemoglobin 8.8. Platelets 134. INR 2.1. Sodium 135. Potassium 3.6. Creatinine 0.8. Glucose 1:15. A ST 89, ALT 37. Albumin 2.8. Lactic acid down to 1.5. Remains on 0.9 normal saline at 100 ML's per hour. Objective - Vital Signs Vital signs: Vital Signs Temp 98.2 F 11/24/20 04:00 Pulse 90 11/24/20 07:15 Resp 15 11/24/20 07:15 BP 102/52 11/23/20 12:00 Pulse Ox 90 L 11/24/20 07:15 Intake & Output 11/23/20 11/24/20 11/24/20 18:59 06:59 18:59 Intake Total 3308.450 2291.775 103.312 Output Total 325 300 250 Balance 2983.450 1991.775 -146.688 Weight 66.2 kg Intake: IV 1240 1200 100 Magnesium Sulfate-D5w Pmx 100 1 gm In Dextrose/Water 1 100ml.bag @ 100 mls/hr IVPB Q1H [facility] Rx#: [id number] Sodium Chloride 0.9% 1, 1140 1200 100 000 ml @ 100 mls/hr IV . Q10H [facility] Rx#:[id number] Intake, IV Titration 1668.450 741.775 3.312 Amount Albumin Human 5% 500 ml 500 In Empty Bag 1 bag @ 500 mls/hr IVPB ONCE ONE Rx#: [id number] Norepinephrine 4 mg In 568.450 741.775 3.312 Sodium Chloride 0.9% 250 ml @ 0.05 MCG/KG/MIN 9. 937 mls/hr IV .Q24H [facility] Rx#:[id number] Piperacillin-Tazobactam 3 100 .375 gm In Sodium Chloride 0.9% 100 ml @ 25 mls/hr IVPB Q6H [facility] Rx#: [id number] Sodium Chloride 0.9% 500 500 ml 500 ml @ 999 mls/hr IV .Q31M [facility] Rx#:[id number] Oral 400 350 Output: Urine 325 300 250 Other: Voiding Method Bedpan Bedpan Diaper Diaper # Voids 0 1 1 # Bowel Movements 2 1 ABP, PAP, CO, CI - Last Documented Arterial Blood Pressure 134/50 - Exam GENERAL EXAM: Alert, jaundice, pleasant 50-year-old female, on room air, currently with abdominal discomfort. HEAD: Normocephalic. EYES: Icteric. Normal reaction of pupils, equal size. NOSE: Clear with pink turbinates. THROAT: No erythema or exudates. NECK: No masses, no JVD. CHEST: No chest wall deformity. LUNGS: Equal air entry with no crackles, wheeze, rhonchi or dullness. CVS: S1 and S2 normal with no audible murmur, regular rhythm. ABDOMEN: Distended, tender mainly in the right upper quadrant now, hepatomegaly SPINE: No scoliosis or deformity SKIN: No rashes CENTRAL NERVOUS SYSTEM: No focal deficits, tone is normal in all 4 extremities. EXTREMITIES: There is no peripheral edema. No clubbing, no cyanosis. Peripheral pulses are intact. - Labs CBC & Chem 7: 11/24/20 04:30 11/24/20 04:30 Labs: Abnormal Lab Results - Last 24 Hours (Table) 11/23/20 11/23/20 11/23/20 Range/Units 10:13 12:01 14:11 WBC (3.8-10.6) k/uL RBC (3.80-5.40) m/uL Hgb (11.4-16.0) gm/dL Hct (34.0-46.0) % MCV (80.0-100.0) fL Plt Count (150-450) k/uL Neutrophils # (Manual) (1.3-7.7) k/uL PT (9.0-12.0) sec INR (<1.2) Sodium (137-145) mmol/L BUN (7-17) mg/dL Glucose (74-99) mg/dL POC Glucose (mg/dL) 126 H (75-99) mg/dL Plasma Lactic Acid Alex 3.8 H* 3.8 H* (0.7-2.0) mmol/L Total Bilirubin (0.2-1.3) mg/dL AST (14-36) U/L ALT (4-34) U/L Albumin (3.5-5.0) g/dL 11/23/20 11/24/20 11/24/20 Range/Units 18:00 04:30 04:30 WBC 16.5 H (3.8-10.6) k/uL RBC 2.57 L (3.80-5.40) m/uL Hgb 8.8 L (11.4-16.0) gm/dL Hct 26.2 L (34.0-46.0) % MCV 101.8 H (80.0-100.0) fL Plt Count 134 L (150-450) k/uL Neutrophils # (Manual) 14.00 H (1.3-7.7) k/uL PT (9.0-12.0) sec INR (<1.2) Sodium 135 L (137-145) mmol/L BUN 19 H (7-17) mg/dL Glucose 115 H (74-99) mg/dL POC Glucose (mg/dL) (75-99) mg/dL Plasma Lactic Acid Alex 2.8 H* (0.7-2.0) mmol/L Total Bilirubin 7.0 H (0.2-1.3) mg/dL AST 89 H (14-36) U/L ALT 37 H (4-34) U/L Albumin 2.8 L (3.5-5.0) g/dL 11/24/20 Range/Units 04:30 WBC (3.8-10.6) k/uL RBC (3.80-5.40) m/uL Hgb (11.4-16.0) gm/dL Hct (34.0-46.0) % MCV (80.0-100.0) fL Plt Count (150-450) k/uL Neutrophils # (Manual) (1.3-7.7) k/uL PT 20.6 H (9.0-12.0) sec INR 2.1 H (<1.2) Sodium (137-145) mmol/L BUN (7-17) mg/dL Glucose (74-99) mg/dL POC Glucose (mg/dL) (75-99) mg/dL Plasma Lactic Acid Alex (0.7-2.0) mmol/L Total Bilirubin (0.2-1.3) mg/dL AST (14-36) U/L ALT (4-34) U/L Albumin (3.5-5.0) g/dL Microbiology - Last 24 Hours (Table) 11/23/20 07:55 Blood Culture - Preliminary Blood No Growth after 24 hours 11/22/20 08:48 Blood Culture Gram Stain - Final Blood Blood Culture - Final Escherichia coli 11/22/20 15:29 Gram Stain - Preliminary Paracentesis Fluid Body Fluid Culture - Preliminary 11/22/20 08:48 Blood Culture Gram Stain - Preliminary Blood Blood Culture - Preliminary Escherichia coli Assessment and Plan Assessment: 1 Acute abdominal pain secondary to ascites, cirrhotic liver 2 Septic shock secondary to E. coli bacteremia with possible spontaneous bacteremia peritonitis versus ischemic colitis. Status post diagnostic paracentesis, cultures pending 3 Lactic acidosis secondary to above number recovered and down to 1.5 4 Coagulopathy secondary to above, INR down to 2.1 5 Anemia 6 Mild transaminitis secondary to above 7 History of heavy alcohol abuse with last drink 10/18/2020 8 Recent diagnosis of liver/gallbladder disease and was to see hepatic specialist this week out of the [facility] 9 Chronic and ongoing tobacco dependence 10 COVID-19 infection one month ago Plan: The patient was seen and evaluated by Dr. Sanchez Improved and off pressors DC arterial line IV fluids to KVO Recheck blood cultures Currently on ceftriaxone Transfer out of the ICU to a [facility] no telemetry this afternoon May consider adding Lasix/Aldactone in a.m. Chest x-ray in a.m. We will continue to follow and make further recommendations based on her clinical status I, the cosigning physician, performed a history & physical examination of the patient. Lungs sounds are clear. Maintaining good O2 saturations in the 90s on room air. I discussed the assessment and plan of care with my nurse practition er, Janay Gonzalez. I attest to the above note as dictated by her. Add SCDs for now Continue [facility] surgical services consulted We will continue to follow make further recommendations based on her clinical status
[2020-11-24] MEDS: SODIUM CHLORIDE 0.9% 1,000 ML IV SCH ×2 (10:44→20:20)
[2020-11-24] MEDS: PANTOPRAZOLE 40 MG/10 ML VIAL IV SCH (10:44)
[2020-11-24] MEDS: POTASSIUM CHLORIDE ER 20 MEQ TAB.ER PO SCH (10:45)
--- NOTE | 2020-11-24 13:43 | P.PN ---
Subjective Progress Note Date: 11/24/20 CHIEF COMPLAINT: Abdominal pain HISTORY OF PRESENT ILLNESS: The patient is a 50 year old female who presented with acute liver failure with ascites and right upper quadrant abdominal pain. She is in the intensive care unit. She is status post paracentesis. She was on pressors which is now improved. REVIEW OF ORGAN SYSTEMS: No chest pain. No fevers or chills. PHYSICAL EXAM: VITALS: Reviewed CONSTITUTIONAL: Well developed and in no acute distress. EYES: Conjuctivae with sclera icterus. Extraocular movements grossly intact. HEAD, EARS, NOSE, THROAT: Moist buccal mucosa. Head is atraumatic, normocephalic. Hears conversational speech. RESPIRATORY: Non labored breathing. No gross wheezes. CARDIOVASCULAR: Palpable 2+ radial pulses. ABDOMEN: Abdominal swelling with ascites. No peritonitis. NEUROLOGIC: Cranial nerves II through XII grossly intact. No focal or lateralizing signs. MUSCULOSKELETAL: No bilateral calf pain. PSYCH: Alert and oriented to person, place, time. CLINCAL LABS: Reviewed. WBC over 16,000. Lactic acid level normal 1.5. ASSESSMENT: 1. Acute fulminant liver failure with alcoholic liver cirrhosis 2. Abdominal ascites 3. Jaundice secondary to acute fulminant liver failure 4. Right upper quadrant abdominal pain improving PLAN: 1. Clinically abdominal pain is improving. 2. Salt restriction for fulminant liver failure and ascites. Objective - Vital Signs Vital signs: Vital Signs Temp 98.0 F 11/24/20 08:00 Pulse 93 11/24/20 11:00 Resp 20 11/24/20 11:00 BP 102/52 11/23/20 12:00 Pulse Ox 90 L 11/24/20 11:00 Intake & Output 11/23/20 11/24/20 11/24/20 18:59 06:59 18:59 Intake Total 3308.450 2291.775 455.312 Output Total 325 300 450 Balance 2983.450 1991.775 5.312 Weight 66.2 kg Intake: IV 1240 1200 230 Magnesium Sulfate-D5w Pmx 100 1 gm In Dextrose/Water 1 100ml.bag @ 100 mls/hr IVPB Q1H [facility] Rx#: [id number] Sodium Chloride 0.9% 1, 1140 1200 180 000 ml @ 20 mls/hr IV . Q24H [facility] Rx#:[id number] cefTRIAXone 2 gm In 50 Sodium Chloride 0.9% 50 ml @ 100 mls/hr IVPB Q24HR [facility] Rx#:[id number] Intake, IV Titration 1668.450 741.775 3.312 Amount Albumin Human 5% 500 ml 500 In Empty Bag 1 bag @ 500 mls/hr IVPB ONCE ONE Rx#: [id number] Norepinephrine 4 mg In 568.450 741.775 3.312 Sodium Chloride 0.9% 250 ml @ 0.05 MCG/KG/MIN 9. 937 mls/hr IV .Q24H [facility] Rx#:[id number] Piperacillin-Tazobactam 3 100 .375 gm In Sodium Chloride 0.9% 100 ml @ 25 mls/hr IVPB Q6H [facility] Rx#: [id number] Sodium Chloride 0.9% 500 500 ml 500 ml @ 999 mls/hr IV .Q31M [facility] Rx#:[id number] Oral 400 350 222 Output: Urine 325 300 450 Other: Voiding Method Bedpan Bedpan Bedside Commode Diaper Diaper Bedpan Diaper # Voids 0 1 1 # Bowel Movements 2 1 ABP, PAP, CO, CI - Last Documented Arterial Blood Pressure 134/45 - Labs CBC & Chem 7: 11/24/20 04:30 11/24/20 04:30 Labs: Abnormal Lab Results - Last 24 Hours (Table) 11/23/20 11/23/20 11/24/20 Range/Units 14:11 18:00 04:30 WBC 16.5 H (3.8-10.6) k/uL RBC 2.57 L (3.80-5.40) m/uL Hgb 8.8 L (11.4-16.0) gm/dL Hct 26.2 L (34.0-46.0) % MCV 101.8 H (80.0-100.0) fL Plt Count 134 L (150-450) k/uL Neutrophils # (Manual) 14.00 H (1.3-7.7) k/uL PT (9.0-12.0) sec INR (<1.2) Sodium (137-145) mmol/L BUN (7-17) mg/dL Glucose (74-99) mg/dL Plasma Lactic Acid Alex 3.8 H* 2.8 H* (0.7-2.0) mmol/L Total Bilirubin (0.2-1.3) mg/dL AST (14-36) U/L ALT (4-34) U/L Albumin (3.5-5.0) g/dL 11/24/20 11/24/20 Range/Units 04:30 04:30 WBC (3.8-10.6) k/uL RBC (3.80-5.40) m/uL Hgb (11.4-16.0) gm/dL Hct (34.0-46.0) % MCV (80.0-100.0) fL Plt Count (150-450) k/uL Neutrophils # (Manual) (1.3-7.7) k/uL PT 20.6 H (9.0-12.0) sec INR 2.1 H (<1.2) Sodium 135 L (137-145) mmol/L BUN 19 H (7-17) mg/dL Glucose 115 H (74-99) mg/dL Plasma Lactic Acid Alex (0.7-2.0) mmol/L Total Bilirubin 7.0 H (0.2-1.3) mg/dL AST 89 H (14-36) U/L ALT 37 H (4-34) U/L Albumin 2.8 L (3.5-5.0) g/dL Microbiology - Last 24 Hours (Table) 11/22/20 08:48 Blood Culture Gram Stain - Final Blood Blood Culture - Final Escherichia coli 11/23/20 07:55 Blood Culture - Preliminary Blood No Growth after 24 hours 11/22/20 08:48 Blood Culture Gram Stain - Final Blood Blood Culture - Final Escherichia coli 11/22/20 15:29 Gram Stain - Preliminary Paracentesis Fluid Body Fluid Culture - Preliminary Assessment and Plan (1) Acute liver failure Current Visit: Yes Status: Acute Code(s): K72.00 - ACUTE AND SUBACUTE HEPATIC FAILURE WITHOUT COMA SNOMED Code(s): 401193972 (2) Alcoholic cirrhosis of liver with ascites Current Visit: Yes Status: Acute Code(s): K70.31 - ALCOHOLIC CIRRHOSIS OF LIVER WITH ASCITES SNOMED Code(s): 066360933 (3) Right upper quadrant abdominal pain Current Visit: Yes Status: Acute Code(s): R10.11 - RIGHT UPPER QUADRANT PAIN SNOMED Code(s): 496104605 (4) Jaundice Current Visit: Yes Status: Acute Code(s): R17 - UNSPECIFIED JAUNDICE SNOMED Code(s): 88686126 (5) Jaundice due to hepatitis Current Visit: Yes Status: Acute Code(s): K75.9 - INFLAMMATORY LIVER DISEASE, UNSPECIFIED SNOMED Code(s): 01331953
--- NOTE | 2020-11-24 13:46 | P.PN ---
Subjective Progress Note Date: 11/24/20 Patient is doing well today. She has been off of vasopressors since yesterday. No acute events overnight. Objective - Vital Signs Vital signs: Vital Signs Temp 98.0 F 11/24/20 08:00 Pulse 93 11/24/20 11:00 Resp 20 11/24/20 11:00 BP 102/52 11/23/20 12:00 Pulse Ox 90 L 11/24/20 11:00 Intake & Output 11/23/20 11/24/20 11/24/20 18:59 06:59 18:59 Intake Total 3308.450 2291.775 455.312 Output Total 325 300 450 Balance 2983.450 1991.775 5.312 Weight 66.2 kg Intake: IV 1240 1200 230 Magnesium Sulfate-D5w Pmx 100 1 gm In Dextrose/Water 1 100ml.bag @ 100 mls/hr IVPB Q1H QUIQUE Rx#: [id number] Sodium Chloride 0.9% 1, 1140 1200 180 000 ml @ 20 mls/hr IV . Q24H QUIQUE Rx#:[id number] cefTRIAXone 2 gm In 50 Sodium Chloride 0.9% 50 ml @ 100 mls/hr IVPB Q24HR QUIQUE Rx#:[id number] Intake, IV Titration 1668.450 741.775 3.312 Amount Albumin Human 5% 500 ml 500 In Empty Bag 1 bag @ 500 mls/hr IVPB ONCE ONE Rx#: [id number] Norepinephrine 4 mg In 568.450 741.775 3.312 Sodium Chloride 0.9% 250 ml @ 0.05 MCG/KG/MIN 9. 937 mls/hr IV .Q24H QUIQUE Rx#:[id number] Piperacillin-Tazobactam 3 100 .375 gm In Sodium Chloride 0.9% 100 ml @ 25 mls/hr IVPB Q6H QUIQUE Rx#: [id number] Sodium Chloride 0.9% 500 500 ml 500 ml @ 999 mls/hr IV .Q31M ONE Rx#:[id number] Oral 400 350 222 Output: Urine 325 300 450 Other: Voiding Method Bedpan Bedpan Bedside Commode Diaper Diaper Bedpan Diaper # Voids 0 1 1 # Bowel Movements 2 1 ABP, PAP, CO, CI - Last Documented Arterial Blood Pressure 134/45 - Exam General: The patient is awake and alert, in no distress Eye: there is normal conjunctiva bilaterally. Neck: The neck is supple, there is no JVD. Cardiovascular: Normal S1-S2, no S3-S4, no murmurs. Respiratory: Lungs clear to auscultation bilaterally Gastrointestinal: Abdomen is distended with no tenderness Musculoskeletal: There is no pedal edema. Neurological:. Speech is normal. Skin: Skin is warm and dry - Labs CBC & Chem 7: 11/24/20 04:30 11/24/20 04:30 Labs: Abnormal Lab Results - Last 24 Hours (Table) 11/23/20 11/23/20 11/24/20 Range/Units 14:11 18:00 04:30 WBC 16.5 H (3.8-10.6) k/uL RBC 2.57 L (3.80-5.40) m/uL Hgb 8.8 L (11.4-16.0) gm/dL Hct 26.2 L (34.0-46.0) % MCV 101.8 H (80.0-100.0) fL Plt Count 134 L (150-450) k/uL Neutrophils # (Manual) 14.00 H (1.3-7.7) k/uL PT (9.0-12.0) sec INR (<1.2) Sodium (137-145) mmol/L BUN (7-17) mg/dL Glucose (74-99) mg/dL Plasma Lactic Acid Alex 3.8 H* 2.8 H* (0.7-2.0) mmol/L Total Bilirubin (0.2-1.3) mg/dL AST (14-36) U/L ALT (4-34) U/L Albumin (3.5-5.0) g/dL 11/24/20 11/24/20 Range/Units 04:30 04:30 WBC (3.8-10.6) k/uL RBC (3.80-5.40) m/uL Hgb (11.4-16.0) gm/dL Hct (34.0-46.0) % MCV (80.0-100.0) fL Plt Count (150-450) k/uL Neutrophils # (Manual) (1.3-7.7) k/uL PT 20.6 H (9.0-12.0) sec INR 2.1 H (<1.2) Sodium 135 L (137-145) mmol/L BUN 19 H (7-17) mg/dL Glucose 115 H (74-99) mg/dL Plasma Lactic Acid Alex (0.7-2.0) mmol/L Total Bilirubin 7.0 H (0.2-1.3) mg/dL AST 89 H (14-36) U/L ALT 37 H (4-34) U/L Albumin 2.8 L (3.5-5.0) g/dL Microbiology - Last 24 Hours (Table) 11/22/20 08:48 Blood Culture Gram Stain - Final Blood Blood Culture - Final Escherichia coli 11/23/20 07:55 Blood Culture - Preliminary Blood No Growth after 24 hours 11/22/20 08:48 Blood Culture Gram Stain - Final Blood Blood Culture - Final Escherichia coli 11/22/20 15:29 Gram Stain - Preliminary Paracentesis Fluid Body Fluid Culture - Preliminary Assessment and Plan Assessment: This is a 50-year-old female with very complex past medical history noted below who presented to the emergency room with worsening abdominal pain and distention. Patient was evaluated in the ER and was readmitted to the hospital for further management of her medical problems noted below. 1. Large ascites with suspected spontaneous bacterial peritonitis: continue with ceftriaxone 2 g daily IV. IR consulted but ascites fluid was pocketed and only a diagnostic tap was done with approximately 50 mL drained. 2. Severe sepsis with septic shock and E. coli bacteremia, continue aggressive IV fluid hydration. Patient received multiple boluses of normal saline. She is off of vasopressors. Lactic acid improving. 3. Alcoholic liver cirrhosis with evidence of lower esophageal varices noted on computed tomography scan. Patient denies any history of variceal bleeds. GI consulted for further evaluation. 4. Coagulopathy, given 2 doses of 5 mg vitamin K today Repeat INR in the morning. 5. Thrombocytopenia, secondary to underlying liver disease 6. Hypokalemia, replacemed 7. Patient is full code Today, I reviewed her medication list and lab work results. Hold off diuretics until blood pressure improves. Transfer out of ICU. Appreciate web development consultant's recommendations.
--- NOTE | 2020-11-24 15:45 | PN ---
PROGRESS NOTE DATE OF DICTATION: 11/24/2020 The patient is a 50-year-old white female with a history of heavy alcohol abuse and alcoholic cirrhosis of the liver, admitted to the hospital with abdominal pain and abdominal distention 2 days ago. She was subsequently diagnosed with Gram-negative bacteremia and became somewhat hypotensive, was transferred to the intensive care unit. She is at present on broad-spectrum antibiotics for possible spontaneous bacterial peritonitis. She is feeling somewhat better today. She still has some abdominal discomfort, but it has improved. No nausea. No vomiting. PHYSICAL EXAMINATION: Appears comfortable. VITAL SIGNS: Stable. Blood pressure 134/45, pulse rate 93, temperature 98. HEENT examination unremarkable. Conjunctivae pink. Sclerae icteric. Oral cavity no lesions. NECK: No JVD or lymph node enlargement. CHEST: Clear to auscultation. HEART: Regular rate and rhythm. ABDOMEN: Soft. It was slightly distended. There was mild diffuse tenderness. EXTREMITIES: No pedal edema. NEURO: She is alert and oriented x3. No focal deficits. LABS: Labs from today show WBC 16.5, hemoglobin 8.8, platelets 134. INR is 2.1. Bilirubin is 7, AST 89, ALT 37. BUN and creatinine are 19 and 0.8, respectively. Lactic acid was 1.5. IMPRESSION: 1. Abdominal pain/abdominal distention and mild ascites, status post diagnostic paracentesis done two days ago. Most likely we are dealing with spontaneous bacterial peritonitis with E coli bacteremia, presently on broad-spectrum antibiotics. Clinically she is gradually improving. 2. Acute alcoholic hepatitis superimposed on alcoholic cirrhosis of the liver with gradual decompensation. 3. Heavy alcohol abuse. Quit drinking 3 months ago. 4. History of gastroesophageal reflux disease. RECOMMENDATIONS: 1. Continue with ceftriaxone 2 grams daily. 2. Continue lactulose and titrate so that she has 3 bowel movements daily. 3. Monitor LFTs and CBC closely. 4. Abstinence from alcohol. 5. Will follow with you closely. Thank you for this consultation. MMODL / IJN: [id number] /
[2020-11-25 04:43] LABS: Basophils % (A) 0 %; Eosinophils # (A) 0.1 k/uL (0-0.7); Eosinophils % (A) 1 %; HCT 26.4 % (34.0-46.0); HGB 9.3 gm/dL (11.4-16.0); Lymphocytes # (A) 0.7 k/uL (1.0-4.8); Lymphocytes % (A) 7 %; MCH 34.7 pg (25.0-35.0); MCHC 35.1 g/dL (31.0-37.0); MCV 98.8 fL (80.0-100.0); Mean Platelet Volume 8.9; Monocytes # (A) 0.9 k/uL (0-1.0); Monocytes % (A) 9 %; Neutrophils % (A) 80 %; Platelet Count 113 k/uL (150-450); RBC 2.67 m/uL (3.80-5.40); RDW 14.2 % (11.5-15.5)
[2020-11-25 05:24] LABS: Toxic Granulation Present; Toxic Vacuolation Present
[2020-11-25 05:39] LABS: INR 1.8 (<1.2); Prothrombin Time 17.7 sec (9.0-12.0)
--- NOTE | 2020-11-25 08:02 | XR ---
EXAMINATION TYPE: XR chest 1V portable DATE OF EXAM: 11/25/2020 COMPARISON: NONE HISTORY: Pleural effusion, liver failure TECHNIQUE: Single frontal view of the chest is obtained. FINDINGS: There is prominence of interstitium bilaterally, patchy airspace disease is noted. No pneu mothorax or pleural effusion. Cardiac mediastinal silhouette within normal limits. IMPRESSION: Correlate for pulmonary edema, pneumonia
[2020-11-25] MEDS: LACTULOSE 20 GM/30 ML CUP PO SCH ×2 (09:54→21:37)
[2020-11-25] MEDS: POTASSIUM CHLORIDE ER 20 MEQ TAB.ER PO SCH (09:54)
[2020-11-25] MEDS: SPIRONOLACTONE 25 MG TAB PO SCH (09:54)
[2020-11-25] MEDS: FUROSEMIDE 20 MG TAB PO SCH ×2 (09:54→15:41)
--- NOTE | 2020-11-25 10:20 | PN ---
PROGRESS NOTE DATE OF SERVICE: November 25, 2020 The patient is a 50-year-old pleasant white female admitted to hospital with E. coli bacteremia and possible spontaneous bacterial peritonitis on broad-spectrum antibiotics and her symptoms are gradually improving. She was just transferred in ICU last night. Overall she is feeling much better. Still has abdominal distention and abdominal pain but is improving. No nausea, no vomiting. On a regular diet, tolerating well. PHYSICAL EXAMINATION: Appears comfortable. VITAL SIGNS: Stable. Blood pressure is 130/72, pulse rate 95, temperature 98.4. HEENT examination unremarkable. Conjunctivae pink. Sclerae anicteric. Oral cavity no lesions. NECK: No JVD or lymph node enlargement. CHEST was clear to auscultation. ABDOMEN: Distended. There was mild tenderness noted. There was hepatomegaly seen. EXTREMITIES: Trace pedal edema. NEUROLOGIC: Alert and oriented x3. No focal deficits. LABS: From today WBC 10, hemoglobin 9.3, platelets 113. INR 1.8. Rest of the labs are pending. IMPRESSION: 1. E. coli bacteremia/possible SBP. The patient on cefazolin and symptoms gradually improving. 2. Alcoholic cirrhosis of the liver with acute alcoholic hepatitis. 3. Coagulopathy secondary to underlying liver disease. 4. Mild hepatic encephalopathy. RECOMMENDATIONS: 1. Continue with Rocephin. 2. Continue lactulose and titrate so that she has 2-3 bowel movements daily. 3. Continue with diuretics with Lasix 20 mg daily and Aldactone 50 mg daily. 4. Increase ambulation. 5. Low-salt diet. 6. Repeat labs in the morning. 7. Will follow with you closely. Thank you for this consultation. MMODL / IJN: [id number] /
[2020-11-25 10:22] LABS: African American GFR (CKD) 130.8 (60.0-200.0); Albumin 2.4 g/dL (3.80-4.90); Albumin/Globulin Ratio 0.55 (1.60-3.17); Anion Gap 8.1 mmol/L (4.00-12.00); Calcium 8.4 mg/dL (8.7-10.3); Carbon Dioxide 23.9 mmol/L (21.6-31.8); Globulin 4.4 g/dL (1.6-3.3); Non-African American GFR(CKD) 112.9 (60.0-200.0); Potassium 3.4 mmol/L (3.5-5.5); Total Bilirubin 5.9 mg/dL (0.2-1.2); Total Protein 6.8 g/dL (6.2-8.2)
--- NOTE | 2020-11-25 11:20 | P.PN ---
Subjective Progress Note Date: 11/25/20 Principal diagnosis: Right upper quadrant pain Patient doing well today. Has been having some pain in the right upper quadrant but that is improved. She is having bowel function. She is tolerating solid foods. Labs noted. Objective - Vital Signs Vital signs: Vital Signs Temp 98.4 F 11/25/20 04:59 Pulse 95 11/25/20 04:59 Resp 16 11/25/20 04:59 BP 130/72 11/25/20 04:59 Pulse Ox 94 L 11/25/20 04:59 Intake & Output 11/24/20 11/25/20 11/25/20 18:59 06:59 18:59 Intake Total 455.312 240 Output Total 750 Balance -294.688 240 Intake: IV 230 Sodium Chloride 0.9% 1, 180 000 ml @ 20 mls/hr IV . Q24H QUIQUE Rx#:[id number] cefTRIAXone 2 gm In 50 Sodium Chloride 0.9% 50 ml @ 100 mls/hr IVPB Q24HR QUIQUE Rx#:[id number] Intake, IV Titration 3.312 Amount Norepinephrine 4 mg In 3.312 Sodium Chloride 0.9% 250 ml @ 0.05 MCG/KG/MIN 9. 937 mls/hr IV .Q24H QUIQUE Rx#:[id number] Oral 222 240 Output: Urine 750 Other: Voiding Method Bedside Commode Bedpan Diaper # Voids 1 2 # Bowel Movements 1 ABP, PAP, CO, CI - Last Documented Arterial Blood Pressure 124/47 - Exam Abdomen: Soft, nondistended, minimal tenderness - Labs CBC & Chem 7: 11/25/20 03:42 11/25/20 03:42 Labs: Abnormal Lab Results - Last 24 Hours (Table) 11/24/20 11/25/20 11/25/20 Range/Units 13:33 03:42 03:42 RBC 2.67 L (3.80-5.40) m/uL Hgb 9.3 L (11.4-16.0) gm/dL Hct 26.4 L (34.0-46.0) % Plt Count 113 L (150-450) k/uL Neutrophils # 8.0 H (1.3-7.7) k/uL Lymphocytes # 0.7 L (1.0-4.8) k/uL PT 17.7 H (9.0-12.0) sec INR 1.8 H (<1.2) Potassium (3.5-5.5) mmol/L Creatinine (0.6-1.5) mg/dL BUN/Creatinine Ratio (12.00-20.00) Ratio Calcium (8.7-10.3) mg/dL Total Bilirubin (0.2-1.2) mg/dL AST (13-35) U/L Ammonia 47 H (<30) umol/L Albumin (3.80-4.90) g/dL Globulin (1.6-3.3) g/dL Albumin/Globulin Ratio (1.60-3.17) g/dL 11/25/20 Range/Units 03:42 RBC (3.80-5.40) m/uL Hgb (11.4-16.0) gm/dL Hct (34.0-46.0) % Plt Count (150-450) k/uL Neutrophils # (1.3-7.7) k/uL Lymphocytes # (1.0-4.8) k/uL PT (9.0-12.0) sec INR (<1.2) Potassium 3.4 L (3.5-5.5) mmol/L Creatinine 0.5 L (0.6-1.5) mg/dL BUN/Creatinine Ratio 32.00 H (12.00-20.00) Ratio Calcium 8.4 L (8.7-10.3) mg/dL Total Bilirubin 5.9 H (0.2-1.2) mg/dL AST 88 H (13-35) U/L Ammonia (<30) umol/L Albumin 2.40 L (3.80-4.90) g/dL Globulin 4.4 H (1.6-3.3) g/dL Albumin/Globulin Ratio 0.55 L (1.60-3.17) g/dL Microbiology - Last 24 Hours (Table) 11/23/20 07:55 Blood Culture - Preliminary Blood No Growth after 48 hours 11/22/20 15:29 Gram Stain - Preliminary Paracentesis Fluid Body Fluid Culture - Preliminary 11/22/20 08:48 Blood Culture Gram Stain - Final Blood Blood Culture - Final Escherichia coli 11/22/20 08:48 Blood Culture Gram Stain - Final Blood Blood Culture - Final Escherichia coli Assessment and Plan (1) Abdominal pain Narrative/Plan: Patient's pain seems to be related to her hepatic failure. Continue diet as tolerated. No surgical intervention planned. Current Visit: Yes Status: Acute Code(s): R10.9 - UNSPECIFIED ABDOMINAL PAIN OMED Code(s): 82813857
--- NOTE | 2020-11-25 12:00 | P.PN ---
Subjective Progress Note Date: 11/25/20 Patient is doing well today. No acute events overnight. Objective - Vital Signs Vital signs: Vital Signs Temp 98.9 F 11/25/20 11:04 Pulse 97 11/25/20 11:04 Resp 16 11/25/20 11:04 BP 135/73 11/25/20 11:04 Pulse Ox 95 11/25/20 11:04 Intake & Output 11/24/20 11/25/20 11/25/20 18:59 06:59 18:59 Intake Total 455.312 240 Output Total 750 Balance -294.688 240 Intake: IV 230 Sodium Chloride 0.9% 1, 180 000 ml @ 20 mls/hr IV . Q24H QUIQUE Rx#:[id number] cefTRIAXone 2 gm In 50 Sodium Chloride 0.9% 50 ml @ 100 mls/hr IVPB Q24HR QUIQUE Rx#:[id number] Intake, IV Titration 3.312 Amount Norepinephrine 4 mg In 3.312 Sodium Chloride 0.9% 250 ml @ 0.05 MCG/KG/MIN 9. 937 mls/hr IV .Q24H QUIQUE Rx#:[id number] Oral 222 240 Output: Urine 750 Other: Voiding Method Bedside Commode Bedpan Diaper # Voids 1 2 # Bowel Movements 1 ABP, PAP, CO, CI - Last Documented Arterial Blood Pressure 124/47 - Exam General: The patient is awake and alert, in no distress Eye: there is normal conjunctiva bilaterally. Neck: The neck is supple, there is no JVD. Cardiovascular: Normal S1-S2, no S3-S4, no murmurs. Respiratory: Lungs clear to auscultation bilaterally Gastrointestinal: Abdomen is distended with no tenderness Musculoskeletal: There is no pedal edema. Neurological:. Speech is normal. Skin: Skin is warm and dry - Labs CBC & Chem 7: 11/25/20 03:42 11/25/20 03:42 Labs: Abnormal Lab Results - Last 24 Hours (Table) 11/24/20 11/25/20 11/25/20 Range/Units 13:33 03:42 03:42 RBC 2.67 L (3.80-5.40) m/uL Hgb 9.3 L (11.4-16.0) gm/dL Hct 26.4 L (34.0-46.0) % Plt Count 113 L (150-450) k/uL Neutrophils # 8.0 H (1.3-7.7) k/uL Lymphocytes # 0.7 L (1.0-4.8) k/uL PT 17.7 H (9.0-12.0) sec INR 1.8 H (<1.2) Potassium (3.5-5.5) mmol/L Creatinine (0.6-1.5) mg/dL BUN/Creatinine Ratio (12.00-20.00) Ratio Calcium (8.7-10.3) mg/dL Total Bilirubin (0.2-1.2) mg/dL AST (13-35) U/L Ammonia 47 H (<30) umol/L Albumin (3.80-4.90) g/dL Globulin (1.6-3.3) g/dL Albumin/Globulin Ratio (1.60-3.17) g/dL 11/25/20 Range/Units 03:42 RBC (3.80-5.40) m/uL Hgb (11.4-16.0) gm/dL Hct (34.0-46.0) % Plt Count (150-450) k/uL Neutrophils # (1.3-7.7) k/uL Lymphocytes # (1.0-4.8) k/uL PT (9.0-12.0) sec INR (<1.2) Potassium 3.4 L (3.5-5.5) mmol/L Creatinine 0.5 L (0.6-1.5) mg/dL BUN/Creatinine Ratio 32.00 H (12.00-20.00) Ratio Calcium 8.4 L (8.7-10.3) mg/dL Total Bilirubin 5.9 H (0.2-1.2) mg/dL AST 88 H (13-35) U/L Ammonia (<30) umol/L Albumin 2.40 L (3.80-4.90) g/dL Globulin 4.4 H (1.6-3.3) g/dL Albumin/Globulin Ratio 0.55 L (1.60-3.17) g/dL Microbiology - Last 24 Hours (Table) 11/23/20 07:55 Blood Culture - Preliminary Blood No Growth after 48 hours 11/22/20 15:29 Gram Stain - Preliminary Paracentesis Fluid Body Fluid Culture - Preliminary 11/22/20 08:48 Blood Culture Gram Stain - Final Blood Blood Culture - Final Escherichia coli 11/22/20 08:48 Blood Culture Gram Stain - Final Blood Blood Culture - Final Escherichia coli Assessment and Plan Assessment: This is a 50-year-old female with very complex past medical history noted below who presented to the emergency room with worsening abdominal pain and distention. Patient was evaluated in the ER and was readmitted to the hospital for further management of her medical problems noted below. 1. Large ascites with suspected spontaneous bacterial peritonitis: continue with ceftriaxone 2 g daily IV. IR consulted but ascites fluid was pocketed and only a diagnostic tap was done with approximately 50 mL drained. Patient started on Lasix and spironolactone 2. Severe sepsis with septic shock and E. coli bacteremia, improved with aggressive IV fluid hydration. Patient required vasopressors in the ICU. Lactic acid back to normal. 3. Alcoholic liver cirrhosis with evidence of lower esophageal varices noted on computed tomography scan. Patient denies any history of variceal bleeds. GI consulted for further evaluation. 4. Coagulopathy, given 2 doses of 5 mg vitamin K today Repeat INR in the morning. 5. Thrombocytopenia, secondary to underlying liver disease 6. Hypokalemia, replacemed 7. Patient is full code Today, I reviewed her medication list and lab work results. Start diuretics today and monitor blood pressure closely. May increase Lasix dose tomorrow if stable.. Appreciate consultant electronics's recommendations.
--- NOTE | 2020-11-25 12:45 | P.PN ---
Subjective Progress Note Date: 11/25/20 Principal diagnosis: Bacteremia, suspect spontaneous bacteria peritonitis versus colitis This is a 50-year-old female patient who has a history of alcoholism with her last drink 10/18/2020 consuming approximately 2 pints per day. She resides in [place] and was to be seeing a liver specialist out of [facility] this week after recently being diagnosed with liver/gallbladder disease. She was in the area camping at [facility] when she developed significant right upper quadrant and diffuse abdominal pain and bloating and presented here to the emergency room yesterday. Abdominal ultrasound revealed hepatocellular disease. Hepatomegaly with surrounding ascites. Gallbladder findings may be a product of underlying liver disease. Acute cholecystitis not entirely excluded. Computed tomography scan of the abdomen revealed cirrhotic morphology of the liver. Extensive heterogeneity dizziness enhancement of the liver likely due to cirrhosis. There are couple hypodense lesions of the right liver lobe measuring up to 7 mm. The presence of moderate ascites and lower esophageal varices suggests portal venous hypertension. Bile duct dilated at 1.1 cm. Hydropic gallbladder. Thickening noted. There is also moderate to severe wall thickening of the right side of the colon could represent significant nonspecific colitis. Possible bowel wall edema from hypoalbuminemia. Diagnostic paracentesis performed yesterday with 5 mL of yellow fluid removed. Blood cultures positive for E. coli. Paracentesis fluid analysis was cloudy with 150 RBCs, 7700 nucleated cells, 94 WBCs, total protein thousand 20, albumin less than 1, fluid LDH 97.. White count 13.4. Hemoglobin 9.3. Platelet count 110,000. Neutrophils 11.3. INR 2.5. Sodium 137. Potassium 4.0. Creatinine 1.20. Glucose 107. Initial lactic acid 4.7. Currently 3.9. AST 109. ALT 37. Alk phos 105. Albumin 2.9. Amylase 60. Lipase 82. Urinalysis with trace protein. 1+ bilirubin. Serum alcohol less than 10. Watts virus not detected. The patient is seen today in consultation in the intensive care unit. She is currently resting in bed. Awake and alert in no acute distress. On room air. She is having ongoing issues with abdominal discomfort. She is bloated and uncomfortable. She has been hypotensive requiring pressors currently on norepinephrine at 18 mcg/kg/m. She's received 2.5 L of fluid resuscitation. Current IV fluids at 40 ML's per hour 0.9 normal saline. She received albumin. She was receiving lactulose 3 times a day with liquid stools. She was initiated on Zosyn. She is be seen by general surgery with no surgical intervention planned. The patient was seen today 11/24/2020 in follow-up in the intensive care unit. She remains awake and alert in no acute distress. Maintaining O2 saturation in low 90s on room air. She's afebrile. Hemodynamically stable. Norepinephrine was discontinued at 7 AM today. Yesterday she received an extra liter of fluid and albumin. Initial blood cultures were positive for E. coli. Follow-up cultures pending. Paracentesis fluid cultures pending. She was initially on Zosyn, currently on ceftriaxone. Her diffuse abdominal discomfort has subsided. Still with some right upper quadrant tenderness. White count 16.5. Hemoglobin 8.8. Platelets 134. INR 2.1. Sodium 135. Potassium 3.6. Creatinine 0.8. Glucose 1:15. A ST 89, ALT 37. Albumin 2.8. Lactic acid down to 1.5. Remains on 0.9 normal saline at 100 ML's per hour. The patient is seen today 11/25/2020 in follow-up on the regular medical floor. She is currently resting fairly comfortably in bed. Still having ongoing issues with abdominal discomfort. She denies any worsening shortness of breath, cough or congestion. No fever, chills or night sweats. She's been hemodynamically stable. She is on room air. Chest x-ray continues to show some evidence of fluid volume overload. Follow-up blood cultures are revealing no growth. Para centesis fluid still pending but currently no growth. White count 10.0. Hemoglobin 9.3. INR 1.8. Sodium 135. Potassium 3.4. Creatinine 0.5. Albumin 2.4. She remains on antibiotics in form of ceftriaxone. Oral Lasix. Lactulose. Objective - Vital Signs Vital signs: Vital Signs Temp 98.9 F 11/25/20 11:04 Pulse 97 11/25/20 11:04 Resp 16 11/25/20 11:04 BP 135/73 11/25/20 11:04 Pulse Ox 95 11/25/20 11:04 Intake & Output 11/24/20 11/25/20 11/25/20 18:59 06:59 18:59 Intake Total 455.312 240 Output Total 750 Balance -294.688 240 Intake: IV 230 Sodium Chloride 0.9% 1, 180 000 ml @ 20 mls/hr IV . Q24H [facility] Rx#:[id number] cefTRIAXone 2 gm In 50 Sodium Chloride 0.9% 50 ml @ 100 mls/hr IVPB Q24HR [facility] Rx#:[id number] Intake, IV Titration 3.312 Amount Norepinephrine 4 mg In 3.312 Sodium Chloride 0.9% 250 ml @ 0.05 MCG/KG/MIN 9. 937 mls/hr IV .Q24H [facility] Rx#:[id number] Oral 222 240 Output: Urine 750 Other: Voiding Method Bedside Commode Bedpan Diaper # Voids 1 2 # Bowel Movements 1 ABP, PAP, CO, CI - Last Documented Arterial Blood Pressure 124/47 - Exam GENERAL EXAM: Alert, jaundice, pleasant 50-year-old female, on room air, currently with abdominal discomfort. HEAD: Normocephalic. EYES: Icteric. Normal reaction of pupils, equal size. NOSE: Clear with pink turbinates. THROAT: No erythema or exudates. NECK: No masses, no JVD. CHEST: No chest wall deformity. LUNGS: Equal air entry with basilar crackles CVS: S1 and S2 normal with no audible murmur, regular rhythm. ABDOMEN: Distended, tender mainly in the right upper quadrant now, hepatomegaly SPINE: No scoliosis or deformity SKIN: No rashes CENTRAL NERVOUS SYSTEM: No focal deficits, tone is normal in all 4 extremities. EXTREMITIES: There is no peripheral edema. No clubbing, no cyanosis. Peripheral pulses are intact. - Labs CBC & Chem 7: 11/25/20 03:42 11/25/20 03:42 Labs: Abnormal Lab Results - Last 24 Hours (Table) 11/24/20 11/25/20 11/25/20 Range/Units 13:33 03:42 03:42 RBC 2.67 L (3.80-5.40) m/uL Hgb 9.3 L (11.4-16.0) gm/dL Hct 26.4 L (34.0-46.0) % Plt Count 113 L (150-450) k/uL Neutrophils # 8.0 H (1.3-7.7) k/uL Lymphocytes # 0.7 L (1.0-4.8) k/uL PT 17.7 H (9.0-12.0) sec INR 1.8 H (<1.2) Potassium (3.5-5.5) mmol/L Creatinine (0.6-1.5) mg/dL BUN/Creatinine Ratio (12.00-20.00) Ratio Calcium (8.7-10.3) mg/dL Total Bilirubin (0.2-1.2) mg/dL AST (13-35) U/L Ammonia 47 H (<30) umol/L Albumin (3.80-4.90) g/dL Globulin (1.6-3.3) g/dL Albumin/Globulin Ratio (1.60-3.17) g/dL 11/25/20 Range/Units 03:42 RBC (3.80-5.40) m/uL Hgb (11.4-16.0) gm/dL Hct (34.0-46.0) % Plt Count (150-450) k/uL Neutrophils # (1.3-7.7) k/uL Lymphocytes # (1.0-4.8) k/uL PT (9.0-12.0) sec INR (<1.2) Potassium 3.4 L (3.5-5.5) mmol/L Creatinine 0.5 L (0.6-1.5) mg/dL BUN/Creatinine Ratio 32.00 H (12.00-20.00) Ratio Calcium 8.4 L (8.7-10.3) mg/dL Total Bilirubin 5.9 H (0.2-1.2) mg/dL AST 88 H (13-35) U/L Ammonia (<30) umol/L Albumin 2.40 L (3.80-4.90) g/dL Globulin 4.4 H (1.6-3.3) g/dL Albumin/Globulin Ratio 0.55 L (1.60-3.17) g/dL Microbiology - Last 24 Hours (Table) 11/23/20 07:55 Blood Culture - Preliminary Blood No Growth after 48 hours 11/22/20 15:29 Gram Stain - Preliminary Paracentesis Fluid Body Fluid Culture - Preliminary 11/22/20 08:48 Blood Culture Gram Stain - Final Blood Blood Culture - Final Escherichia coli 11/22/20 08:48 Blood Culture Gram Stain - Final Blood Blood Culture - Final Escherichia coli Assessment and Plan Assessment: 1 Acute abdominal pain secondary to ascites, cirrhotic liver 2 Septic shock secondary to E. coli bacteremia with possible spontaneous bacteremia peritonitis versus ischemic colitis. Status post diagnostic paracentesis, cultures pending 3 Lactic acidosis secondary to above number recovered and down to 1.5 4 Coagulopathy secondary to above, INR down to 2.1 5 Anemia 6 Mild transaminitis secondary to above 7 History of heavy alcohol abuse with last drink 10/18/2020 8 Recent diagnosis of liver/gallbladder disease and was to see hepatic specialist this week out of the [facility] 9 Chronic and ongoing tobacco dependence 10 COVID-19 infection one month ago Plan: The patient was seen and evaluated by Dr. Sanchez Chest x-ray reviewed. On Lasix and Aldactone. Follow-up blood cultures revealing no growth, remains on ceftriaxone We will continue to follow and make further recommendations based on her clinical status I, the cosigning physician, performed a history & physical examination of the patient. Lungs sounds with crackles in the bases. Maintaining good O2 saturations in the 90s on room air. I discussed the assessment and plan of care with my nurse practitioner, Janay Gonzalez. I attest to the above note as dictated by her.
[2020-11-25] MEDS: MORPHINE SULFATE 2 MG/ML SYRINGE IV PRN (19:56)
[2020-11-26] MEDS: SPIRONOLACTONE 25 MG TAB PO SCH (08:16)
[2020-11-26] MEDS: FUROSEMIDE 20 MG TAB PO SCH ×2 (08:16→18:14)
[2020-11-26] MEDS: POTASSIUM CHLORIDE ER 20 MEQ TAB.ER PO SCH (08:16)
[2020-11-26] MEDS: LACTULOSE 20 GM/30 ML CUP PO SCH ×2 (08:17→21:46)
[2020-11-26] MEDS: MORPHINE SULFATE 2 MG/ML SYRINGE IV PRN ×3 (08:24→22:21)
--- NOTE | 2020-11-26 08:26 | P.DS ---
Providers Date of admission: 11/23/20 01:08 Expected date of discharge: 11/26/20 Attending physician: Marry Griffiths Consults: 11/22/20 08:18 Consult Physician Routine Consulting Provider: Angelita Flowers Consult Reason/Comments: suspect acute cholecystitis Do you want consulting provider notified?: Yes 11/22/20 08:29 Consult Physician Routine Consulting Provider: Lynne Hendricks Consult Reason/Comments: liver failure Do you want consulting provider notified?: Yes 11/23/20 07:32 Consult Physician Routine Consulting Provider: Douglas Sanchez Consult Reason/Comments: ICU care Do you want consulting provider notified?: Yes Primary care physician: Physician Nonstaff Hospital Course: This is a 50-year-old female with very complex past medical history noted below who presented to the emergency room with worsening abdominal pain and distention. Patient was evaluated in the ER and was readmitted to the hospital for further management of her medical problems noted below. 1. Large ascites with suspected spontaneous bacterial peritonitis: Started on ceftriaxone 2 g IV daily. IR consulted but ascites fluid was pocketed and only a diagnostic tap was done with approximately 50 mL drained. Patient started on Lasix and spironolactone 2. Severe sepsis with septic shock and E. coli bacteremia, improved with aggressive IV fluid hydration and antibiotic. Patient required vasopressors in the ICU. Lactic acid back to normal. 3. Alcoholic liver cirrhosis with evidence of lower esophageal varices noted on computed tomography scan. Patient denies any history of variceal bleeds. GI consulted for further evaluation. 4. Coagulopathy, given 2 doses of 5 mg vitamin K during this admission 5. Thrombocytopenia, secondary to underlying liver disease 6. Hypokalemia, replaced 7. Patient is full code Today, I reviewed her medication list and lab work results. Patient will be discharged home in a stable condition. Her overall prognosis is guarded. She will finish an additional 10 days course of antibiotic with Keflex. Prescription for diuretics sent to her pharmacy. Patient is scheduled to follow-up with [facility] hepatology this week. She already had plans for EGD for possible banding. She'll be discharged home in a stable condition. Patient Condition at Discharge: Poor Plan - Discharge Summary Discharge Rx Participant: No New Discharge Prescriptions: New Cephalexin [Keflex] 500 mg PO Q6HR 10 Days #40 cap Furosemide [Lasix] 40 mg PO BID #60 tablet Magnesium Oxide [Mag-Ox] 400 mg PO DAILY #30 tablet Spironolactone 50 mg PO DAILY #30 tablet Lactulose [Cephulac] 10 gm PO BID #90 ml Potassium Chloride ER [K-Dur 10] 10 meq PO DAILY #30 tab Continue Omeprazole [PriLOSEC] 20 mg PO [facility] [[email or web address]] Budesonide/Formoterol Fumarate [Symbicort 80-4.5 Mcg Inhaler] 2 puff INHALATION RT-BID Albuterol Sulfate [Proair Hfa] 1 - 2 puff INHALATION RT-QID PRN PRN Reason: Shortness Of Breath Or Wheezing Discharge Medication List Albuterol Sulfate [Proair Hfa] 1 - 2 puff INHALATION RT-QID PRN 11/22/20 [History] Budesonide/Formoterol Fumarate [Symbicort 80-4.5 Mcg Inhaler] 2 puff INHALATION RT-BID 11/22/20 [History] Omeprazole [PriLOSEC] 20 mg PO [facility] [[email or web address]] 11/22/20 [History] Cephalexin [Keflex] 500 mg PO Q6HR 10 Days #40 cap 11/26/20 [Rx] Furosemide [Lasix] 40 mg PO BID #60 tablet 11/26/20 [Rx] Lactulose [Cephulac] 10 gm PO BID #90 ml 11/26/20 [Rx] Magnesium Oxide [Mag-Ox] 400 mg PO DAILY #30 tablet 11/26/20 [Rx] Potassium Chloride ER [K-Dur 10] 10 meq PO DAILY #30 tab 11/26/20 [Rx] Spironolactone 50 mg PO DAILY #30 tablet 11/26/20 [Rx] Follow up Appointment(s)/Referral(s): Nonstaff,Physician [Primary Care Provider] - 1-2 days Discharge Disposition: HOME SELF-CARE
[2020-11-26 09:51] LABS: INR 1.85 (0.90-1.11); Prothrombin Time 19.4 sec (9.9-11.9)
[2020-11-26 10:09] LABS: African American GFR (CKD) 140.8 (60.0-200.0); Anion Gap 6.7 mmol/L (4.00-12.00); Calcium 8.7 mg/dL (8.7-10.3); Carbon Dioxide 28.3 mmol/L (21.6-31.8); Magnesium 1.2 mg/dL (1.5-2.4); Non-African American GFR(CKD) 121.4 (60.0-200.0)
--- NOTE | 2020-11-26 11:04 | PN ---
PROGRESS NOTE DATE OF SERVICE: 11/26/2020 The patient is a 50-year-old white female admitted to the hospital with abdominal pain, abdominal distention and spontaneous bacterial peritonitis with E coli bacteremia on broad-spectrum antibiotics, doing well. She still has some abdominal distention and some abdominal pain but her oral intake has been improving. She reports no nausea, vomiting. Overall she is feeling much better. She had three bowel movements yesterday. PHYSICAL EXAMINATION: Blood pressure 115/70, pulse rate 90, temperature 98.5. HEENT examination unremarkable. Conjunctivae pink, sclerae icteric. Oral cavity no lesions. NECK: No JVD or lymph node enlargement. CHEST was clear to auscultation. HEART: Regular rate and rhythm. ABDOMEN: Soft, slightly distended. Mild diffuse tenderness. EXTREMITIES: No pedal edema. SKIN: No rashes. NEUROLOGIC: Alert and oriented x3. No focal deficits no. LABS: No labs available from today. Yesterday WBC 10, hemoglobin 9.3, platelets 113. INR 1.8. T bilirubin 5.9. AST 80, ALT 39. Ammonia was 50. IMPRESSION: 1. Escherichia coli bacteremia/spontaneous bacterial peritonitis on broad-spectrum antibiotics, gradually improving. 2. Alcoholic liver disease with alcoholic cirrhosis and acute alcoholic hepatitis. 3. Mild ascites/abdominal distention on Lasix 20 mg daily and Aldactone 50 mg daily. 4. Heavy alcohol abuse, quit drinking a month ago. 5. Mild hepatic encephalopathy on lactulose 10 g twice daily. RECOMMENDATIONS: 1. Continue antibiotics. 2. Continue with Lasix and Aldactone at the current dose. 3. Low-salt diet. 4. Abstinence from alcohol. 5. If patient is being discharged home today she was advised to follow up with her clothing designer in [facility] within a week. Thank you for this consultation. MMODL / IJN: [id number] /
--- NOTE | 2020-11-26 12:16 | P.PN ---
Subjective Progress Note Date: 11/26/20 Principal diagnosis: Right upper quadrant pain Patient doing better today. Denies abdominal pain unless she is bloated after eating. No pain currently. Objective - Vital Signs Vital signs: Vital Signs Temp 98.5 F 11/26/20 11:12 Pulse 88 11/26/20 11:12 Resp 16 11/26/20 11:12 BP 111/69 11/26/20 11:12 Pulse Ox 96 11/26/20 11:12 Intake & Output 11/25/20 11/26/20 11/26/20 18:59 06:59 18:59 Intake Total 50 480 Output Total 350 Balance 50 130 Intake: Intake, IV Titration 50 Amount cefTRIAXone 2 gm In 50 Sodium Chloride 0.9% 50 ml @ 100 mls/hr IVPB Q24HR [facility] Rx#:[id number] Oral 480 Output: Urine 350 Other: # Voids 2 2 1 # Bowel Movements 1 1 ABP, PAP, CO, CI - Last Documented Arterial Blood Pressure 124/47 - Exam Abdomen: Soft, nondistended, mild upper abdominal tenderness - Labs CBC & Chem 7: 11/25/20 03:42 11/26/20 05:51 Labs: Abnormal Lab Results - Last 24 Hours (Table) 11/26/20 11/26/20 11/26/20 Range/Units 05:51 05:51 05:51 PT 19.4 H (9.9-11.9) sec INR 1.85 H (0.90-1.11) Sodium 133 L (135-145) mmol/L Potassium 3.0 L (3.5-5.5) mmol/L Creatinine 0.4 L (0.6-1.5) mg/dL BUN/Creatinine Ratio 25.00 H (12.00-20.00) Ratio Glucose 120 H (70-110) mg/dL Magnesium 1.2 L (1.5-2.4) mg/dL Ammonia 50 H (<30) umol/L Microbiology - Last 24 Hours (Table) 11/23/20 07:55 Blood Culture - Preliminary Blood No Growth after 72 hours 11/22/20 15:29 Gram Stain - Preliminary Paracentesis Fluid Body Fluid Culture - Preliminary 11/24/20 13:34 Blood Culture - Preliminary Blood No Growth after 24 hours 11/24/20 13:35 Blood Culture - Preliminary Blood No Growth after 24 hours Assessment and Plan (1) Abdominal pain Narrative/Plan: Continue regular diet. Continue alcohol cessation. Possible discharge. Current Visit: Yes Status: Acute Code(s): R10.9 - UNSPECIFIED ABDOMINAL PAIN SNOMED Code(s): 51437112
[2020-11-27] MEDS: MORPHINE SULFATE 2 MG/ML SYRINGE IV PRN ×3 (04:27→14:18)
[2020-11-27] MEDS: FUROSEMIDE 20 MG TAB PO SCH (08:24)
[2020-11-27] MEDS: POTASSIUM CHLORIDE ER 20 MEQ TAB.ER PO SCH (08:25)
[2020-11-27] MEDS: LACTULOSE 20 GM/30 ML CUP PO SCH (08:25)
[2020-11-27] MEDS: SPIRONOLACTONE 25 MG TAB PO SCH (08:25)
--- NOTE | 2020-11-27 09:41 | PN ---
PROGRESS NOTE DATE OF DICTATION: November 27, 2020 The patient is a 50-year-old white female admitted to the hospital with E coli bacteremia/spontaneous bacterial peritonitis, doing well on broad-spectrum antibiotics. She still complains of abdominal distention, abdominal discomfort but overall feeling much better. No nausea. No vomiting. PHYSICAL EXAMINATION: Appears comfortable. Vital signs are stable. Blood pressure 107/67, pulse rate 87, temperature 98.2. HEENT examination unremarkable. Conjunctivae pink. Sclerae anicteric. Oral cavity no lesions. NECK: No JVD. No lymph node enlargement. CHEST was clear to auscultation. HEART: Regular rate and rhythm. ABDOMEN: Soft, slightly distended. There was mild tenderness in the upper abdomen. Mild hepatomegaly. No clinical ascites. EXTREMITIES: No pedal edema. NEUROLOGIC: Alert and oriented x3. No focal deficits. LABS: No labs available from today. Yesterday, INR is 1.85. Ammonia level was 50. BUN and creatinine are within normal limits. IMPRESSION: 1. Acute alcoholic hepatitis superimposed on alcoholic cirrhosis of the liver which is gradually improving. 2. Abdominal pain and abdominal distention secondary to tender hepatomegaly and mild ascites, presently on diuretics. 3. E coli bacteremia with spontaneous bacterial peritonitis on broad-spectrum antibiotics. Clinically improving. 4. Anemia and thrombocytopenia secondary to underlying liver disease/portal hypertension. 5. Coagulopathy related to chronic liver disease. 6. Elevated LFTs and jaundice secondary to acute alcoholic hepatitis. RECOMMENDATIONS: 1. Continue with broad-spectrum antibiotics. 2. Low-salt diet. 3. Increase ambulation. 4. Continue with the current diuretics. 5. Continue with oral lactulose. 6. We will follow with you closely. MMODL / IJN: [id number] /
--- NOTE | 2020-11-27 09:50 | P.DS ---
Providers Date of admission: 11/23/20 01:08 Expected date of discharge: 11/27/20 Attending physician: Marry Griffiths Consults: 11/22/20 08:18 Consult Physician Routine Consulting Provider: Angelita Flowers Consult Reason/Comments: suspect acute cholecystitis Do you want consulting provider notified?: Yes 11/22/20 08:29 Consult Physician Routine Consulting Provider: Lynne Hendricks Consult Reason/Comments: liver failure Do you want consulting provider notified?: Yes 11/23/20 07:32 Consult Physician Routine Consulting Provider: Douglas Sanchez Consult Reason/Comments: ICU care Do you want consulting provider notified?: Yes Primary care physician: Physician Nonstaff Hospital Course: Patient was supposed to be discharged from the hospital yesterday but did not h ave a ride to go home. She was seen and evaluated by me today. She is feeling fairly well. Denies any abdominal pain. Her abdomen is soft and slightly distended. Below is a summary of her hospital stay. This is a 50-year-old female with very complex past medical history noted below who presented to the emergency room with worsening abdominal pain and distention. Patient was evaluated in the ER and was readmitted to the hospital for further management of her medical problems noted below. 1. Large ascites with suspected spontaneous bacterial peritonitis: Started on ceftriaxone 2 g IV daily. IR consulted but ascites fluid was pocketed and only a diagnostic tap was done with approximately 50 mL drained. Patient started on Lasix and spironolactone 2. Severe sepsis with septic shock and E. coli bacteremia, improved with aggressive IV fluid hydration and antibiotic. Patient required vasopressors in the ICU. Lactic acid back to normal. 3. Alcoholic liver cirrhosis with evidence of lower esophageal varices noted on computed tomography scan. Patient denies any history of variceal bleeds. GI consulted for further evaluation. 4. Coagulopathy, given 2 doses of 5 mg vitamin K during this admission 5. Thrombocytopenia, secondary to underlying liver disease 6. Hypokalemia, replaced 7. Patient is full code Patient will be discharged home in a stable condition. Her overall prognosis is guarded. She will finish an additional 10 days course of antibiotic with Keflex. Prescription for diuretics sent to her pharmacy. Patient is scheduled to follow-up with [facility] hepatology this week. She already had plans for EGD for possible banding. She'll be discharged home in a stable condition. Patient Condition at Discharge: Poor Plan - Discharge Summary Discharge Rx Participant: No New Discharge Prescriptions: New Cephalexin [Keflex] 500 mg PO Q6HR 10 Days #40 cap Lactulose [Cephulac] 10 gm PO BID #60 ml Potassium Chloride ER [K-Dur 10] 10 meq PO DAILY #30 tab Furosemide [Lasix] 40 mg PO BID #60 tablet Magnesium Oxide [Mag-Ox] 400 mg PO DAILY #30 tablet Spironolactone 50 mg PO DAILY #30 tablet Continue Omeprazole [PriLOSEC] 20 mg PO [facility] Budesonide/Formoterol Fumarate [Symbicort 80-4.5 Mcg Inhaler] 2 puff INHALATION RT-BID Albuterol Sulfate [Proair Hfa] 1 - 2 puff INHALATION RT-QID PRN PRN Reason: Shortness Of Breath Or Wheezing Discharge Medication List Albuterol Sulfate [Proair Hfa] 1 - 2 puff INHALATION RT-QID PRN 11/22/20 [History] Budesonide/Formoterol Fumarate [Symbicort 80-4.5 Mcg Inhaler] 2 puff INHALATION RT-BID 11/22/20 [History] Omeprazole [PriLOSEC] 20 mg PO [id number] 11/22/20 [History] Cephalexin [Keflex] 500 mg PO Q6HR 10 Days #40 cap 11/26/20 [Rx] Furosemide [Lasix] 40 mg PO BID #60 tablet 11/26/20 [Rx] Lactulose [Cephulac] 10 gm PO BID #60 ml 11/26/20 [Rx] Magnesium Oxide [Mag-Ox] 400 mg PO DAILY #30 tablet 11/26/20 [Rx] Potassium Chloride ER [K-Dur 10] 10 meq PO DAILY #30 tab 11/26/20 [Rx] Spironolactone 50 mg PO DAILY #30 tablet 11/26/20 [Rx] Follow up Appointment(s)/Referral(s): Nonstaff,Physician [Primary Care Provider] - 1-2 days Patient Instructions/Handouts: Cephalexin (By mouth), Spironolactone (By mouth), Furosemide (By mouth), Lactulose (By mouth), Low-Sodium Diet (DC) Activity/Diet/Wound Care/Special Instructions: Activity limited until follow up Regular low sodium diet Discharge Disposition: HOME SELF-CARE
--- NOTE | 2020-11-27 11:18 | P.PN ---
Progress Note - Text Progress Note Date: 11/27/20 Patient doing well today. Denies pain at this time. She is afebrile. Tolerating diet. Abdomen: Soft, nontender, nondistended May discharge from a surgical point of view.
[2020-11-27 12:33] VITALS: BP 116/68; PULSE 83; RESP 18; TEMP 98.1
== END 2020-11-27 15:25 | disposition home or self-care (01) | DRG 871 ==
LOC: EC 04:28 → 4SSUR 08:28 → OBSVTOIN 11-23 01:08 → 2SICU 11-23 02:04 → 5NMEDONC 11-24 19:01
PROVIDERS: ADMIT Internal Medicine; ATTEND Internal Medicine
PROC: 0W9G3ZX Drainage of Peritoneal Cavity, Percutaneous Approach, Diagnostic (ICD-10-PCS; principal; 2020-11-22)
PROC: 3E033XZ Introduction of Vasopressor into Peripheral Vein, Percutaneous Approach (ICD-10-PCS; 2020-11-23)
DX: A41.51 Sepsis due to Escherichia coli [E. coli] (principal); R65.21 Severe sepsis with septic shock; K65.2 Spontaneous bacterial peritonitis; E87.2 Acidosis; I85.10 Secondary esophageal varices without bleeding; K82.1 Hydrops of gallbladder; K76.6 Portal hypertension; D68.4 Acquired coagulation factor deficiency; K70.40 Alcoholic hepatic failure without coma; Z20.822 Contact with and (suspected) exposure to COVID-19; D69.59 Other secondary thrombocytopenia; K70.11 Alcoholic hepatitis with ascites; K70.31 Alcoholic cirrhosis of liver with ascites; F17.200 Nicotine dependence, unspecified, uncomplicated; F41.9 Anxiety disorder, unspecified; E87.6 Hypokalemia; K21.9 Gastro-esophageal reflux disease without esophagitis; Z79.51 Long term (current) use of inhaled steroids; Z86.16 Personal history of COVID-19; Z79.899 Other long term (current) drug therapy; D63.8 Anemia in other chronic diseases classified elsewhere; Z98.51 Tubal ligation status; F10.10 Alcohol abuse, uncomplicated
CPT/HCPCS: 36415; 49083; 71045; 74177; 76705; 80048; 80053; 80320; 81003; 81025; 82042; 82140; 82150; 83605; 83615; 83690; 83735; 84132; 84157; 85025; 85610; 85730; 87040; 87070; 87075; 87077; 87186; 87205; 87635; 89050; 94640; 96361; 96374; 99285